=== PATIENT | female | born 1940 | race Caucasian/White ===

== ENCOUNTER → 2017-09-20 14:28 | Outpatient (POV) | payer MEDICARE, OTHER, SELFPAY | PROVIDERS: PCP Family Medicine; Visit Provider Dermatology | DX: Z00.00 Encounter for general adult medical examination without abnormal findings (principal) ==

== ENCOUNTER → 2017-09-25 07:59 | Outpatient (CLI) | payer MEDICARE, OTHER, SELFPAY ==
--- NOTE | 2017-09-25 08:04 | CA_ITS ---
PROCEDURE: 2-D M-mode and color Doppler study INDICATIONS FOR THE TEST: Chest pain COPD+ Heart Murmur Tobacco Smoking Palpitations Fatigue Syncope Edema+ Hypertension+Diabetes Mellitus Rheumatic Fever SOB PINON+Obesity Hyperlipidemia+ Family History HD+ Additional History history of Cardiomyopathy PATIENT INFORMATION HEIGHT: 63 WEIGHT: 152 GENDER: Female B/P: 156/80 2-D/M-MODE INTERPRETATION: 2-D MEASUREMENTS OBSERVED VALUES IN CMS Right Ventricular Dimension (RVDd) 2.3 Interventricular Septum (Thickness)(IVsd) 1.0 Left Ventricular Internal Dimensions(LVIDd) 3.3 Left Ventricular Posterior Wall (Thickness)(LVPWd) 0.8 Aortic Root 2.8 Aortic Cusp Separation 2.1 Left Atrial Dimensions (LAD) 3.4 2D 1. Left atrium is qualitatively mildly enlarged, left ventricle is normal size, there is mild qualitative concentric left ventricular hypertrophy present, septum has sigmoid configuration, visually estimated ejection fraction 55% with no obvious regional wall motion abnormality. 2. The right atrium and right ventricle are normal size and contractility. 3. The aortic valve is minimally thickened and fibrosed. 4. The mitral valve leaflets are minimally thickened, there is mild systolic anterior motion of the mitral valve leaflets seen. 5. The tricuspid valve is grossly normal. 6. The pulmonic valve is poorly visualized. 7. No significant pericardial effusion noted. DOPPLER INTERROGATION: Doppler interrogation of the aortic, mitral and tricuspid valvular presence of mild mitral and tricuspid regurgitation, tricuspid regurgitant jet velocity insufficient for calculation of the right ventricular systolic pressure, grade 1 diastolic dysfunction seen with tissue Doppler evidence of raised left atrial pressure. There is no resting gradient seen in the left ventricular outflow tract. CONCLUSION: 1. Mildly enlarged left atrium, normal left ventricular size, mild concentric left ventricular hypertrophy, visually estimated ejection fraction 55% with no obvious regional wall motion abnormality, diastolic dysfunction seen with tissue Doppler evidence of raised left atrial pressure. 2. Mild systolic anterior motion of the mitral valve leaflets, there is no resting gradient seen in the left ventricular outflow tract, there is mild mitral and tricuspid regurgitation 3. No significant pericardial effusion noted.
== END ==
PROVIDERS: PCP Family Medicine; Visit Provider Internal Medicine
DX: I42.1 Obstructive hypertrophic cardiomyopathy (principal); I51.7 Cardiomegaly; E78.5 Hyperlipidemia, unspecified; D3A.090 Benign carcinoid tumor of the bronchus and lung
CPT/HCPCS: 93306

== ENCOUNTER → 2018-04-23 14:04 | Outpatient (CLI) | payer MEDICARE, OTHER, SELFPAY ==
--- NOTE | 2018-04-23 14:09 | XR_ITS ---
XR chest 2V HISTORY: ITS.REASON: cough ORDERING PHYSICIAN: Alexia Oliva PATIENT AGE: 77 years COMPARISON: 06/16/2016 FINDINGS: The cardiomediastinal silhouette and pulmonary vascularity are within normal limits. There is a lobular noncalcified soft tissue mass in the right perihilar region and 3.5 x 3 cm. This was mentioned on the coronary artery scoring CT of 06/16/2016. Is difficult to determine if there has been any change in size. As mentioned previously CT chest without and with contrast suggested to determine if this is a varix or pulmonary nodule. There are chronic changes in the left lower lobe. Surgical changes in the cervical spine. No acute bony anomalies IMPRESSION: Right perihilar mass. Consider chest CT without and with contrast for further evaluation with CT angiogram protocol on the post enhanced images Chronic changes in the left lower lobe. No acute finding
== END ==
PROVIDERS: PCP Family Medicine; Visit Provider Urology
DX: D3A.090 Benign carcinoid tumor of the bronchus and lung (principal); I11.9 Hypertensive heart disease without heart failure; I42.1 Obstructive hypertrophic cardiomyopathy; I51.7 Cardiomegaly; R05 Cough; R06.00 Dyspnea, unspecified; E78.49 Other hyperlipidemia
CPT/HCPCS: 71046

== ENCOUNTER → 2018-04-26 13:50 | Outpatient (CLI) | payer MEDICARE, OTHER, SELFPAY ==
--- NOTE | 2018-04-26 14:09 | CT_ITS ---
CT chest wo/w con HISTORY: Cough, abnormal chest x-ray showing a right upper lobe mass ITS.REASON: lung mass ORDERING PHYSICIAN: Alexia Oliva PATIENT AGE: 77 years COMPARISON: 04/23/2018, 06/16/2016 Technique: Axial images obtained without and with contrast following the intravenous administration of 75 mL's of Isovue 370 with sagittal and coronal reformats. All CT scans at the facility use one or more dose reduction, viz: automated exposure control, ma/kV adjustment per patient size (including targeted exams where dose is matched to indication, i.e. head), or iterative reconstruction technique. FINDINGS: No mediastinal or hilar mass or adenopathy. Normal heart size. No evidence of pericardial effusion. No aortic aneurysm dissection or central pulmonary embolus. There is a noncalcified lobular soft tissue mass within the superior segment of the right lower lobe measuring 2.7 cm cephalad to caudad, 2 cm transverse, and 2 cm AP. This has a lobular contour with fingerlike extensions peripherally along the superior lateral margin. This does not demonstrate contrast enhancement. A small satellite nodule present along the posterior aspect of this larger nodule which measures 1 cm. There are other noncalcified pulmonary nodules well. There is an 8 mm nodule in the right middle lobe, an 8 mm nodule in the right lower lobe anteriorly, 12 mm nodule in the right lower lobe posteriorly, 4 mm right lower lobe nodule medially, 7 mm nodule left lower lobe, 6 mm nodule left lower lobe anteriorly. No acute bony anomalies are evident. Upper abdominal images show a 6 mm isodensity in the right hepatic lobe posteriorly. 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 There is a 1.7 x 1.3 cm soft tissue density posterior to the body the pancreas and may represent a lymph node. IMPRESSION: 1. Noncalcified lobular right upper lobe mass. This does not demonstrate enhancement patterns typical for a pulmonary varix. A thrombosed varix is a consideration however, there are other noncalcified pulmonary nodules are also present as detailed above. Metastatic disease therefore consideration. Does patient have a known primary carcinoma? Consider PET CT for further evaluation. 2. Left renal angiomyolipoma. 3. Other nonacute findings as described above
[2018-04-26 14:21] LABS: Blood Urea Nitrogen 16 mg/dL (7-18); Creatinine,Serum 1.23 mg/dL (0.55-1.02); Estimated Glomerular Filt Rate 42 ml/min (>60); GFR (African American) 51 ML/MIN (>60)
== END ==
PROVIDERS: Visit Provider Urology
DX: R91.8 Other nonspecific abnormal finding of lung field; D3A.090 Benign carcinoid tumor of the bronchus and lung; E78.5 Hyperlipidemia, unspecified; I11.9 Hypertensive heart disease without heart failure; I42.1 Obstructive hypertrophic cardiomyopathy; R53.83 Other fatigue; R60.9 Edema, unspecified
CPT/HCPCS: 36415; 71270; 82565; 84520; Q9967

== ENCOUNTER 2018-05-08 23:43 | Inpatient (IN) ==
[2018-05-09 07:25] LABS: Basophils % 0.1 % (0.1-2.0); Eosinophils % 0.1 % (0.1-12.0); Hematocrit 37.9 % (37.0-47.0); Hemoglobin 12.5 g/dL (12.2-16.2); Lymphocytes # 1.1 K/mm3 (0.7-4.5); Lymphocytes % 10.4 % (10-50); Mean Corpuscular HGB Conc 32.9 g/dL (31.8-35.4); Mean Corpuscular Hemoglobin 29.8 pg (27.0-31.2); Mean Corpuscular Volume 90.8 fl (81-99); Mean Platelet Volume 7.2 fl (7.4-10.4); Monocytes # 0.2 K/mm3 (0.1-1.0); Monocytes % 1.5 % (1.7-9.3); Neutrophils # 9.4 K/mm3 (1.8-7.8); Neutrophils % 87.9 % (37.0-80.0); Platelet Count 475 K/mm3 (142-424); Red Blood Count 4.18 M/mm3 (4.20-5.40); Red Cell Distribution Width 13.3 % (11.5-17.5); White Blood Count 10.7 K/mm3 (4.8-10.8)
[2018-05-09 07:34] LABS: INR 0.97 (0.9-1.1)
[2018-05-09 07:50] LABS: Anion Gap 17.4 mEq/L (5-15); Calcium 9.5 mg/dL (8.5-10.1); Potassium 4.4 mmoL/L (3.5-5.1)
--- NOTE | 2018-05-09 07:56 | Pharmacy Consult Notes ---
[facility] Pharmacy VTE Monitoring - Patient Demographics Admission date: 05/09/18 Report Date: 05/09/18 Time: 07:56 Allergies/Adverse Reactions: Patient Allergies Sulfa (Sulfonamide Antibiotics) Allergy (Verified 05/01/18 12:18) sulfamethoxazole [From Bactrim] Allergy (Verified 05/01/18 12:18) trimethoprim [From Bactrim] Allergy (Verified 05/01/18 12:18) Height: 1.52 m Weight: 65.771 kg - VTE Risk Labs: VTE Related Lab Results Hgb 12.5 g/dL (12.2-16.2) 05/09/18 05:26 Hct 37.9 % (37.0-47.0) 05/09/18 05:26 Plt Count 475 K/mm3 (142-424) H 05/09/18 05:26 PT 10.0 seconds (9.4-11.8) 05/09/18 05:26 INR 0.97 (0.9-1.1) 05/09/18 05:26 BUN 21 mg/dL (7-18) H 05/09/18 05:26 Creatinine 1.01 mg/dL (0.55-1.02) 05/09/18 05:26 Estimated Creat Clear 48 mL/min (50-200) 05/09/18 05:26 Was VTE Risk Assessment Performed: Yes VTE Score: 4 VTE Risk Level: Low Risk Clinical Trial Participant: No - Prophylaxis VTE Prophylaxis Ordered?: Yes Types of VTE Prophylaxis: TEDS Knee High
--- NOTE | 2018-05-09 08:28 | Consult Report ---
History of Present Illness Consult date: 05/09/18 Requesting physician: Andrew Leo Consult reason: chest pain Chief complaint: Cough, dizziness Additional Medical History:: 1. HOCM 2. Non-cancerous lung tumor, followed by Stephanie Poole at 3. Hypothyroidism 4. HLD History of present illness: 77 yo WF with history of HOCM presented to [facility] ER for evaluation of chest pain. Symptoms of non-productive cough and dizziness for 2 wks. Denies fever, chills, nausea or vomiting. Daily loose stools due to linzess per patient. Elevated troponin noted without EKG changes and pt was transferred here for furt her cardiac treatment. History of low coronary calcium score in 2017 with normal stress test. Denies tobacco use or diabetes. [facility] History Medical History: Reports:: Cardiomyopathy, Gastroesophageal Reflux Disease(GERD), Hyperlipidemia, Hypertension Denies:: Cancer, Diabetes Mellitus Type 1, Diabetes Mellitus Type 2, MRSA Have you ever received a pneumonia vaccine?: Yes Have you received a flu vaccine this season?: Yes Other Medical History: Reports: Arthritis, Hypothyroidism Other Surgeries: Yes: Hysterectomy-Total, Tubal Ligation, Other Amputation: No - *Social History Educational Level: Completed College Smoking Status: Never smoker Alcohol Intake: never Alcohol Intake Frequency:: other Substance Use Type: denies use Occupational Status: retired Housing: house Travel in the last 8 weeks: None - Psychiatric History Expresses thoughts of harming self/others: None Suicide Plan Description: No Plan *Family Hx:: Coronary Artery Disease, Heart Attack Meds Home Medications Medication Instructions Recorded Confirmed Type docusate sodium 100 mg capsule 100 mg PO HS 04/30/17 05/15/18 History pravastatin 40 mg tablet 40 mg PO HS 04/30/17 05/15/18 History buspirone 10 mg tablet 10 mg PO DAILY 06/19/17 05/15/18 History fluticasone 100 mcg-umeclid 62.5 1 inh INHALATION NEEDED PRN 06/19/17 05/15/18 History mcg-vilant 25 mcg powd for inhalation levothyroxine 88 mcg capsule 88 mcg PO DAILY cap 06/19/17 05/15/18 History pantoprazole 40 mg tablet,delayed 40 mg PO DAILY 06/19/17 05/15/18 History release conjugated estrogens 0.625 mg 0.625 mg PO DAILY tab 07/17/17 05/15/18 History tablet linaclotide 290 mcg capsule 290 mcg PO DAILY cap 07/17/17 05/15/18 History venlafaxine ER 225 mg 225 mg PO DAILY tab 07/17/17 05/15/18 History tablet,extended release 24 hr Loratadine [Allergy Relief] 10 mg PO NEEDED PRN 12/20/17 05/15/18 History aspirin 81 mg tablet,delayed 81 mg PO DAILY 01/22/18 05/15/18 History release cyanocobalamin (vitamin B-12) 1,000 mcg PO DAILY 01/22/18 05/15/18 History 1,000 mcg capsule meclizine 12.5 mg tablet 12.5 mg PO NEEDED PRN 01/22/18 05/15/18 History triamcinolone acetonide 0.1 % 1 applic TOPICAL NEEDED PRN 01/22/18 05/15/18 History topical cream trospium 20 mg tablet 20 mg PO DAILY tab 01/22/18 05/15/18 History diltiazem CD 360 mg 360 mg PO DAILY #90 cap 03/05/18 05/15/18 Rx capsule,extended release 24 hr metoprolol succinate ER 100 mg 100 mg PO BID tab 04/23/18 05/15/18 History tablet,extended release 24 hr Furosemide [Furosemide 20mg Tab] 20 mg PO DAILY 05/09/18 05/15/18 History Spironolactone [Aldactone 25mg 25 mg PO DAILY #30 tab 05/10/18 05/15/18 Rx Tab] clopidogrel 75 mg tablet 75 mg PO DAILY #30 tab 05/10/18 05/15/18 Rx Allergies Allergy/AdvReac Type Severity Reaction Status Date / Time Sulfa (Sulfonamide Allergy Verified 05/15/18 09:15 Antibiotics) sulfamethoxazole Allergy Verified 05/15/18 09:15 [From Bactrim] trimethoprim [From Bactrim] Allergy Verified 05/15/18 09:15 Review of Systems - *Cardiovascular Reports chest pain, Reports shortness of breath - *Respiratory Reports cough, Reports shortness of breath - *Gastrointestinal Denies abdominal pain - *Genitourinary Denies blood in urine - *Musculoskeletal Denies joint pain Exam Vital signs and Labs for Last 24 Hours: Temp Pulse Resp BP Pulse Ox 98.0 F 91 H 18 121/83 96 05/09/18 04:00 05/09/18 06:00 05/09/18 04:00 05/09/18 06:00 05/09/18 06:00 Laboratory Results - last 24 hr 05/09/18 05:26: WBC 10.7, RBC 4.18 L, Hgb 12.5, Hct 37.9, MCV 90.8, MCH 29.8, MCHC 32.9, RDW 13.3, Plt Count 475 H, MPV 7.2 L, Neut % (Auto) 87.9 H, Lymph % (Auto) 10.4, [place] % (Auto) 1.5 L, Eos % (Auto) 0.1, Baso % (Auto) 0.1, Neut # (Auto) 9.4 H, Lymph # (Auto) 1.1, [place] # (Auto) 0.2, Eos # (Auto) 0.0, Baso # (Auto) 0.0 05/09/18 05:26: PT 10.0, INR 0.97 05/09/18 05:26: Sodium 128 L, Potassium 4.4, Chloride 92 L, Carbon Dioxide 23, Anion Gap 17.4 H, BUN 21 H, Creatinine 1.01, Estimated Creat Clear 48, Estimated GFR 53 L, Est GFR ( Amer) 64, Glucose 145 H, Calcium 9.5, Magnesium 1.6, Triglycerides 201 H, Cholesterol 221 H, LDL Cholesterol 126, VLDL Cholesterol 40, HDL Cholesterol 55, Cholesterol/HDL Ratio 4.0 H I & O for Last 24 hours: Intake & Output 05/06/18 05/07/18 05/08/18 05/09/18 11:59 11:59 11:59 11:59 Intake Total Balance Weight 145 lb - *Routine Neck Exam Present: supple. Absent: JVD, carotid bruit - *Routine Respiratory Exam Present: crackles. Absent: accessory muscle use, rales, rhonchi, wheezes - *Routine Cardiovascular Exam Present: RRR. Absent: murmur, gallop, rubs - *Routine Extremities Exam Absent: edema, calf tenderness - *Routine Neurological Exam Present: alert, oriented X3, moving all extremities Assessment and Plan (1) Elevated troponin Status: Acute Category: Medical Code(s): R74.8 - Abnormal levels of other serum enzymes (2) Hyperlipidemia Status: Chronic Qualifiers: Hyperlipidemia type: other hyperlipidemia Qualified Code(s): E78.49 - Other hyperlipidemia; E78.4 - Other hyperlipidemia Category: Medical Code(s): E78.5 - Hyperlipidemia, unspecified (3) Hypertensive heart disease Status: Chronic Qualifiers: Heart failure presence: without heart failure Qualified Code(s): I11.9 - Hypertensive heart disease without heart failure Category: Medical Code(s): I11.9 - Hypertensive heart disease without heart failure (4) Hypertrophic obstructive cardiomyopathy Status: Chronic Category: Medical Code(s): I42.1 - Obstructive hypertrophic cardiomyopathy - Assessment and plan all Dx Assessment and Plan for all problems:: 1. LHC today to evaluate elevated troponin 2. Pneumonia on CXR, per Dr. Leo 3. Continue combo of beta margaret and CCB 4. Further recommendations to follow
[2018-05-09 09:12] LABS: Lymphocytes % 7 % (10-50); Monocytes % 2 % (2-9); Neutrophils % 89 % (42-76); Total Cells Counted 100
--- NOTE | 2018-05-09 10:02 | History & Physical Report ---
*Admission Date: 05/09/18 *Chief complaint: sob *History of present illness: this wf presented to [facility] with sob and was found to have nstemi- [facility] 2. Non-cancerous lung tumor, followed by Stephanie Poole at 3. Hypothyroidism 4. HLD History of present illness: 77 yo WF with history of HOCM presented to [facility] ER for evaluation of chest pain. Symptoms of non-productive cough and dizziness for 2 wks. Denies fever, chills, nausea or vomiting. Daily loose stools due to linzess per patient. Elevated troponin noted without EKG changes and pt was transferred here for further cardiac treatment. History of low coronary calcium score in 2017 with normal stress test. Denies tobacco use or diabetes. [facility] History I have reviewed the patient's past medical history: Yes Medical History: Reports:: Cardiomyopathy, Gastroesophageal Reflux Disease(GERD), Hyperlipidemia, Hypertension Denies:: Cancer, Diabetes Mellitus Type 1, Diabetes Mellitus Type 2, MRSA Have you ever received a pneumonia vaccine?: Yes Have you received a flu vaccine this season?: Yes Other Medical History: Reports: Arthritis, Hypothyroidism Other Surgeries: Yes: Hysterectomy-Total, Tubal Ligation, Other Amputation: No - *Social History Educational Level: Completed College Smoking Status: Never smoker Alcohol Intake: never Alcohol Intake Frequency:: other Substance Use Type: denies use Occupational Status: retired Housing: house Travel in the last 8 weeks: None - Psychiatric History Expresses thoughts of harming self/others: None Suicide Plan Description: No Plan *Family Hx:: Coronary Artery Disease, Heart Attack Review of Systems - Review of Systems Review of systems:: pertinent systems reviewed and negative unless documented below - Constitutional Denies fever(s) - Eyes Denies change in vision - ENT Denies change in voice - *Cardiovascular Reports chest pain with activity, Reports shortness of breath - *Respiratory Reports cough, Reports shortness of breath, Denies coughing up blood - *Gastrointestinal Denies abdominal pain - *Genitourinary Denies blood in urine - *Musculoskeletal Denies joint pain - Integumentary/Breasts Denies rash - *Neurologic Denies seizure-like activity Meds Home Medications Medication Instructions Recorded Confirmed Type docusate sodium 100 mg capsule 100 mg PO HS 04/30/17 05/09/18 History pravastatin 40 mg tablet 40 mg PO HS 04/30/17 05/09/18 History buspirone 10 mg tablet 10 mg PO DAILY 06/19/17 05/09/18 History fluticasone 100 mcg-umeclid 62.5 1 inh INHALATION NEEDED PRN 06/19/17 05/09/18 History mcg-vilant 25 mcg powd for inhalation levothyroxine 88 mcg capsule 88 mcg PO DAILY cap 06/19/17 05/09/18 History pantoprazole 40 mg tablet,delayed 40 mg PO DAILY 06/19/17 05/09/18 History release conjugated estrogens 0.625 mg 0.625 mg PO DAILY tab 07/17/17 05/09/18 History tablet linaclotide 290 mcg capsule 290 mcg PO DAILY cap 07/17/17 05/09/18 History venlafaxine ER 225 mg 225 mg PO DAILY tab 07/17/17 05/09/18 History tablet,extended release 24 hr Loratadine [Allergy Relief] 10 mg PO NEEDED PRN 12/20/17 05/09/18 History aspirin 81 mg tablet,delayed 81 mg PO DAILY 01/22/18 05/09/18 History release cyanocobalamin (vitamin B-12) 1,000 mcg PO DAILY 01/22/18 05/09/18 History 1,000 mcg capsule meclizine 12.5 mg tablet 12.5 mg PO NEEDED PRN 01/22/18 05/09/18 History triamcinolone acetonide 0.1 % 1 applic TOPICAL NEEDED PRN 01/22/18 05/09/18 History topical cream trospium 20 mg tablet 20 mg PO DAILY tab 01/22/18 05/09/18 History diltiazem CD 360 mg 360 mg PO DAILY #90 cap 03/05/18 05/09/18 Rx capsule,extended release 24 hr metoprolol succinate ER 100 mg 100 mg PO BID tab 04/23/18 05/09/18 History tablet,extended release 24 hr Furosemide [Furosemide 20mg Tab] 20 mg PO NEEDED PRN 05/09/18 05/09/18 History Losartan Potassium 50 mg PO DAILY 05/09/18 05/09/18 History Allergies Allergy/AdvReac Type Severity Reaction Status Date / Time Sulfa (Sulfonamide Allergy Verified 05/01/18 12:18 Antibiotics) sulfamethoxazole Allergy Verified 05/01/18 12:18 [From Bactrim] trimethoprim [From Bactrim] Allergy Verified 05/01/18 12:18 Exam Vital signs and Labs for Last 24 Hours: Temp Pulse Resp BP Pulse Ox 98.0 F 91 H 18 121/83 96 05/09/18 04:00 05/09/18 06:00 05/09/18 04:00 05/09/18 06:00 05/09/18 06:00 Laboratory Results - last 24 hr 05/09/18 05:26: WBC 10.7, RBC 4.18 L, Hgb 12.5, Hct 37.9, MCV 90.8, MCH 29.8, MCHC 32.9, RDW 13.3, Plt Count 475 H, MPV 7.2 L, Neut % (Auto) 87.9 H, Lymph % (Auto) 10.4, [place] % (Auto) 1.5 L, Eos % (Auto) 0.1, Baso % (Auto) 0.1, Neut # (Auto) 9.4 H, Lymph # (Auto) 1.1, [place] # (Auto) 0.2, Eos # (Auto) 0.0, Baso # (Auto) 0.0, Total Counted 100, Neutrophils % (Manual) 89 H, Lymphocytes % (Manual) 7 L, Atypical Lymphs % 2.0, Monocytes % (Manual) 2, Platelet Estimate Slight increase 05/09/18 05:26: PT 10.0, INR 0.97 05/09/18 05:26: Sodium 128 L, Potassium 4.4, Chloride 92 L, Carbon Dioxide 23, Anion Gap 17.4 H, BUN 21 H, Creatinine 1.01, Estimated Creat Clear 48, Estimated GFR 53 L, Est GFR ( Amer) 64, Glucose 145 H, Calcium 9.5, Magnesium 1.6, Triglycerides 201 H, Cholesterol 221 H, LDL Cholesterol 126, VLDL Cholesterol 40, HDL Cholesterol 55, Cholesterol/HDL Ratio 4.0 H I & O for Last 24 hours: Intake & Output 05/06/18 05/07/18 05/08/18 05/09/18 11:59 11:59 11:59 11:59 Intake Total Balance Weight 145 lb - Constitutional no acute distress, average body habitus - *Routine HEENT Exam Head: Present: normocephalic Eye: Present: EOMI, PERRL ENT: Present: mucous membranes dry - *Routine Neck Exam Present: supple. Absent: JVD - *Routine Respiratory Exam Present: decreased breath sounds - *Routine Cardiovascular Exam Present: RRR, murmur - *Routine Abdominal Exam Present: soft. Absent: tenderness - *Routine Extremities Exam Absent: calf tenderness - *Routine Skin Exam Present: intact - *Routine Neurological Exam Present: alert, oriented X3, CN II-XII intact - Routine Psychiatric Exam Present: normal affect Assessment and Plan (1) Elevated troponin Current visit: Yes Status: Acute Category: Medical Code(s): R74.8 - Abnormal levels of other serum enzymes (2) Hyperlipidemia Current visit: No Status: Chronic Qualifiers: Hyperlipidemia type: other hyperlipidemia Qualified Code(s): E78.49 - Other hyperlipidemia; E78.4 - Other hyperlipidemia Category: Medical Code(s): E78.5 - Hyperlipidemia, unspecified (3) Hypertensive heart disease Current visit: No Status: Chronic Qualifiers: Heart failure presence: without heart failure Qualified Code(s): I11.9 - Hypertensive heart disease without heart failure Category: Medical Code(s): I11.9 - Hypertensive heart disease without heart failure (4) Hypertrophic obstructive cardiomyopathy Current visit: No Status: Chronic Category: Medical Code(s): I42.1 - Obstructive hypertrophic cardiomyopathy
--- NOTE | 2018-05-09 16:38 | Cardiology Report ---
PROCEDURE: 2-D M-mode and color Doppler study INDICATIONS FOR THE TEST: Chest pain COPD Heart Murmur Tobacco Smoking Palpitations Fatigue Syncope Edema HypertensionXDiabetes Mellitus Rheumatic Fever SOB PINON Obesity HyperlipidemiaX Family History HD Additional History NSTEMI,CM PATIENT INFORMATION HEIGHT: 60 WEIGHT:145 GENDER: Female B/P:141/73 2-D/M-MODE INTERPRETATION: 2-D MEASUREMENTS OBSERVED VALUES IN CMS Right Ventricular Dimension (RVDd) 1.9 Interventricular Septum (Thickness)(IVsd) 1.0 Left Ventricular Internal Dimensions(LVIDd) 3.5 Left Ventricular Posterior Wall (Thickness)(LVPWd) .8 Aortic Root 2.7 Aortic Cusp Separation 1.8 Left Atrial Dimensions (LAD) 3.2 2D 1. Left atrium is moderately enlarged, left ventricle is normal size, there is asymmetrical septal hypertrophy of the basal septum seen, visually estimated ejection fraction of 55-60% with no regional wall motion abnormality. 2. The right atrium and right ventricle are normal size and contractility. 3. The aortic valve is thickened and VERY difficult to display mobility, there is no aortic stenosis. 4. The mitral valve has mitral calcification, there is mild systolic anterior motion of the mitral valve leaflets seen towards left ventricular outflow tract. 5. The tricuspid valve is grossly normal. 6. The pulmonic valve is poorly visualized. 7. No significant pericardial effusion noted. DOPPLER INTERROGATION: 1. There is increased velocity seen in the left ventricle outflow tract, this is likely secondary to dynamic obstruction, which is not well recorded in this study, degree of obstruction and gradient cannot be determined with this study. A repeat study with better Doppler technique is recommended for further evaluation of resting gradient as well as provocable gradient in the left ventricular outflow tract. There is mild aortic insufficiency present. 2. Mitral inflow velocity within normal range, there is no mitral stenosis, there is moderate to severe mitral regurgitation. Grade 1 diastolic dysfunction seen with tissue Doppler evidence of raised left atrial pressure. 3. There is moderate tricuspid regurgitation noted, calculated right ventricular systolic pressure is 54 mmHg consistent with moderate pulmonary hypertension. CONCLUSION: 1. Moderately enlarged left atrium, normal left ventricular size, asymmetrical septal hypertrophy likely hypertrophy cardiomyopathy, visually estimated ejection fraction 55-60% with no regional wall motion abnormality, there is likely dynamic left ventricular outflow track obstruction present, repeat study with better Doppler technique is recommended for further evaluation of the resting as well as provocable gradient in the left ventricular outflow tract. 2. Morphologically there is no aortic stenosis, there is mild aortic insufficiency. 3. Mild systolic anterior motion of the mitral valve leaflets towards the left ventricle outflow tract, agitated with the moderate to severe mitral regurgitation 4. Moderate tricuspid regurgitation, calculated right ventricular systolic pressure is 54 mmHg consistent with moderate pulmonary hypertension. 5. No significant pericardial effusion noted.
[2018-05-10 07:35] LABS: Hemoglobin 10.1 g/dL (12.2-16.2)
--- NOTE | 2018-05-10 08:31 | Progress Note ---
Subjective Date: 05/10/18 Time: 08:25 Principal diagnosis: NSTEMI Interval history: 77 yo WF in bed in [facility]. Telemetry shows sinus rhythm at 100 bpm. No chest pain or SOA. Exam Vital signs and Labs for Last 24 Hours: Temp Pulse Resp BP Pulse Ox 98.1 F 86 16 141/82 H 92 L 05/10/18 06:00 05/10/18 06:00 05/10/18 06:00 05/10/18 06:00 05/10/18 06:00 Laboratory Results - last 24 hr 05/09/18 05:26: Total Counted 100, Neutrophils % (Manual) 89 H, Lymphocytes % (Manual) 7 L, Atypical Lymphs % 2.0, Monocytes % (Manual) 2, Platelet Estimate Slight increase 05/09/18 12:30: Activated Clotting Time 250 H* 05/10/18 06:50: Hgb 10.1 L, Hct 31.0 L 05/10/18 06:50: Creatinine 0.88, Estimated Creat Clear 47, Estimated GFR 62, Est GFR ( Amer) 75 I & O for Last 24 hours: Intake & Output 05/07/18 05/08/18 05/09/18 05/10/18 11:59 11:59 11:59 11:59 Intake Total 960 / 960 Output Total 3450 / 3450 Balance -2490 / -2490 Weight 145 lb 140 lb - *Routine HEENT Exam Head: Present: normocephalic Eye: Present: EOMI, PERRL ENT: Present: mucous membranes moist - *Routine Respiratory Exam Present: CTA bilaterally. Absent: accessory muscle use, rales, rhonchi, wheezes - *Routine Cardiovascular Exam Present: RRR, tachycardia. Absent: murmur, gallop, rubs - *Routine Abdominal Exam Present: soft. Absent: tenderness, distended, guarding - *Routine Extremities Exam Absent: edema, calf tenderness - *Routine Neurological Exam Present: alert, oriented X3, moving all extremities Progress Note: A&P (1) NSTEMI (non-ST elevated myocardial infarction) Status: Acute (2) Hyperlipidemia Status: Chronic (3) Hypertensive heart disease Status: Chronic (4) Hypertrophic obstructive cardiomyopathy Status: Chronic Assessment and Plan for All Diagnoses:: 1. Continue ASA and plavix (started at [facility]) along with restarting Cardizem, metoprolol at home doses. Will add ARB for wall motion abnormality noted on echo and cardiac cath. Add low dose lasix and aldactone. 2. Re-evaluate later today for possible discharge home
--- NOTE | 2018-05-10 14:00 | Discharge Summary ---
General - General Admission date:: 05/08/18 Discharge date: 05/10/18 HPI HPI: this wf presented to [facility] with sob and was found to have nstemi- she [facility] 2. Non-cancerous lung tumor, followed by Stephanie Poole at 3. Hypothyroidism 4. HLD History of present illness: 77 yo WF with history of HOCM presented to [facility] ER for evaluation of chest pain. Symptoms of non-productive cough and dizziness for 2 wks. Denies fever, chills, nausea or vomiting. Daily loose stools due to linzess per patient. Elevated troponin noted without EKG changes and pt was transferred here for further cardiac treatment. History of low coronary calcium score in 2017 with normal stress test. Denies tobacco use or diabetes. Hospital Course Hospital Course: pt was monitored in hospital and was seen by card-HC today to evaluate elevated troponin 2. Pneumonia on CXR, per Dr. Leo 3. Continue combo of beta margaret and CCB 4. Further recommendations to follow pt was on abx for abn cxr and did well and had card cath and echo -OPPLER INTERROGATION: 1. There is increased velocity seen in the left ventricle outflow tract, this is likely secondary to dynamic obstruction, which is not well recorded in this study, degree of obstruction and gradient cannot be determined with this study. A repeat study with better Doppler technique is recommended for further evaluation of resting gradient as well as provocable gradient in the left ventricular outflow tract. There is mild aortic insufficiency present. 2. Mitral inflow velocity within normal range, there is no mitral stenosis, there is moderate to severe mitral regurgitation. Grade 1 diastolic dysfunction seen with tissue Doppler evidence of raised left atrial pressure. 3. There is moderate tricuspid regurgitation noted, calculated right ventricular systolic pressure is 54 mmHg consistent with moderate pulmonary hypertension. CONCLUSION: 1. Moderately enlarged left atrium, normal left ventricular size, asymmetrical septal hypertrophy likely hypertrophy cardiomyopathy, visually estimated ejection fraction 55-60% with no regional wall motion abnormality, there is likely dynamic left ventricular outflow track obstruction present, repeat study with better Doppler technique is recommended for further evaluation of the resting as well as provocable gradient in the left ventricular outflow tract. 2. Morphologically there is no aortic stenosis, there is mild aortic insufficiency. 3. Mild systolic anterior motion of the mitral valve leaflets towards the left ventricle outflow tract, agitated with the moderate to severe mitral regurgitation 4. Moderate tricuspid regurgitation, calculated right ventricular systolic pressure is 54 mmHg consistent with moderate pulmonary hypertension. 5. No significant pericardial effusion noted. NGIOGRAPHIC RESULTS: 1. The left main artery normal 2. The left anterior descending artery has proximal and mid vessel 10-20% stenoses. There is a large first diagonal artery which has an ostial 90% stenosis. 3. The circumflex artery is a nondominant vessel with mild 10% luminal irregularities 4. The right coronary artery is a large dominant vessel and has proximal to mid vessel 10-20% stenoses 5. The [place] ventriculogram reveals normal left ventricular size with moderately hypokinetic anterior apical wall with an estimated ejection fraction of 45% 6. The left ventricular end-diastolic pressure severely elevated at 40 mmHg IMPRESSION: 1. Large regional wall motion abnormality with reduced ejection fraction involving the anterior apical wall. 2. Severely elevated LVEDP with ejection fraction of 45% 3. Severe disease in a large first diagonal artery which likely accounts for the regional wall motion abnormality and the acute non-ST elevation myocardial infarction 4. Successful stenting of the proximal LAD with stenting into the first diagonal artery and a bifurcating manner reducing the culprit vessel stenosis to 0% PLAN: 1. Brilinta and aspirin 2. Patient needs significant diuresis with Loop diuretics and Aldactone to be given in the hospital and upon discharge 3. Carvedilol combined with pilar inhibitors 4. Avoidance of tobacco products 5. Cardiac rehabilitation pt did well and was stable and will be d/c to see her pcp and also dr lawson Objective Vital signs: Temp Pulse Resp BP Pulse Ox 98.0 F 95 H 16 155/93 H 97 05/10/18 12:00 05/10/18 12:00 05/10/18 12:00 05/10/18 12:00 05/10/18 12:00 no acute distress - *Routine HEENT Exam Head: Present: normocephalic Eye: Present: EOMI, PERRL ENT: Present: mucous membranes dry - *Routine Neck Exam Present: supple - *Routine Respiratory Exam Present: CTA bilaterally - *Routine Cardiovascular Exam Present: RRR, murmur - *Routine Abdominal Exam Present: soft - *Routine Extremities Exam Absent: edema - *Routine Skin Exam Present: intact - *Routine Neurological Exam Present: alert, oriented X3, CN II-XII intact - Routine Psychiatric Exam Present: normal affect Results Labs on day of discharge: Labs from last 24 hours 05/10/18 05/10/18 06:50 06:50 Hgb 10.1 L Hct 31.0 L Creatinine 0.88 Estimated Creat Clear 47 Estimated GFR 62 Est GFR ( Amer) 75 DS: Diagnosis - Discharge Diagnosis (1) NSTEMI (non-ST elevated myocardial infarction) Status: Acute (2) Hyperlipidemia Status: Chronic (3) Hypertensive heart disease Status: Chronic (4) Hypertrophic obstructive cardiomyopathy Status: Chronic (5) Mitral regurgitation Status: Acute (6) Tricuspid regurgitation Status: Acute (7) Pulmonary hypertension Status: Acute Discharge Plan - Patient Discharge Instructions ACTIVITY: Continue current activity DIET: continue same diet Patient Instructions: DI for Heart Attack, DI for Angina, DI for Cardiac Catheterization, DI for Surgical Site Infection - Follow up Plan Disposition: Home, Self-Detention Medications: Home Medications Medication Instructions Recorded Confirmed Type docusate sodium 100 mg capsule 100 mg PO HS 04/30/17 05/09/18 History pravastatin 40 mg tablet 40 mg PO HS 04/30/17 05/09/18 History buspirone 10 mg tablet 10 mg PO DAILY 06/19/17 05/09/18 History fluticasone 100 mcg-umeclid 62.5 1 inh INHALATION NEEDED PRN 06/19/17 05/09/18 History mcg-vilant 25 mcg powd for inhalation levothyroxine 88 mcg capsule 88 mcg PO DAILY cap 06/19/17 05/09/18 History pantoprazole 40 mg tablet,delayed 40 mg PO DAILY 06/19/17 05/09/18 History release conjugated estrogens 0.625 mg 0.625 mg PO DAILY tab 07/17/17 05/09/18 History tablet linaclotide 290 mcg capsule 290 mcg PO DAILY cap 07/17/17 05/09/18 History venlafaxine ER 225 mg 225 mg PO DAILY tab 07/17/17 05/09/18 History tablet,extended release 24 hr Loratadine [Allergy Relief] 10 mg PO NEEDED PRN 12/20/17 05/09/18 History aspirin 81 mg tablet,delayed 81 mg PO DAILY 01/22/18 05/09/18 History release cyanocobalamin (vitamin B-12) 1,000 mcg PO DAILY 01/22/18 05/09/18 History 1,000 mcg capsule meclizine 12.5 mg tablet 12.5 mg PO NEEDED PRN 01/22/18 05/09/18 History triamcinolone acetonide 0.1 % 1 applic TOPICAL NEEDED PRN 01/22/18 05/09/18 History topical cream trospium 20 mg tablet 20 mg PO DAILY tab 01/22/18 05/09/18 History diltiazem CD 360 mg 360 mg PO DAILY #90 cap 03/05/18 05/09/18 Rx capsule,extended release 24 hr metoprolol succinate ER 100 mg 100 mg PO BID tab 04/23/18 05/09/18 History tablet,extended release 24 hr Furosemide [Furosemide 20mg Tab] 20 mg PO DAILY 05/09/18 05/10/18 History Losartan Potassium 50 mg PO DAILY 05/09/18 05/09/18 History Aspirin [Aspirin 81mg EC Tab] 81 mg PO DAILY #30 tablet. 05/10/18 Rx Clopidogrel Bisulfate [Plavix 75mg 75 mg PO DAILY #30 tablet 05/10/18 Rx Tab] Furosemide [Lasix 20mg tablet] 20 mg PO DAILY #30 tablet 05/10/18 Rx Irbesartan [Avapro 75mg 75 mg PO DAILY #30 tablet 05/10/18 Rx tablet] Metoprolol Succinate [Toprol XL 100 mg PO DAILY #30 tab.er.24h 05/10/18 Rx 100mg tablet] Spironolactone [Aldactone 25mg 25 mg PO DAILY #30 tablet 05/10/18 Rx Tab] dilTIAZem HCl [Cardizem 180mg ER 360 mg PO DAILY #30 cap.er.24h 05/10/18 Rx capsule] Prescriptions/Medication Reconciliation: New Clopidogrel Bisulfate [Plavix 75mg Tab] 75 mg PO DAILY #30 tablet dilTIAZem HCl [Cardizem 180mg ER capsule] 360 mg PO DAILY #30 cap.er.24h Irbesartan [Avapro 75mg tablet] 75 mg PO DAILY #30 tablet Metoprolol Succinate [Toprol XL 100mg tablet] 100 mg PO DAILY #30 tab.er.24h Spironolactone [Aldactone 25mg Tab] 25 mg PO DAILY #30 tablet Aspirin [Aspirin 81mg EC Tab] 81 mg PO DAILY #30 tablet. Furosemide [Lasix 20mg tablet] 20 mg PO DAILY #30 tablet Continue pravastatin 40 mg tablet 40 mg PO HS docusate sodium 100 mg capsule 100 mg PO HS fluticasone 100 mcg-umeclid 62.5 mcg-vilant 25 mcg powd for inhalation 1 inh INHALATION NEEDED PRN PRN Reason: allergies levothyroxine 88 mcg capsule 88 mcg PO DAILY cap buspirone 10 mg tablet 10 mg PO DAILY pantoprazole 40 mg tablet,delayed release 40 mg PO DAILY venlafaxine ER 225 mg tablet,extended release 24 hr 225 mg PO DAILY tab meclizine 12.5 mg tablet 12.5 mg PO NEEDED PRN PRN Reason: Dizziness triamcinolone acetonide 0.1 % topical cream 1 applic TOPICAL NEEDED PRN PRN Reason: itching cyanocobalamin (vitamin B-12) 1,000 mcg capsule 1,000 mcg PO DAILY aspirin 81 mg tablet,delayed release 81 mg PO DAILY diltiazem CD 360 mg capsule,extended release 24 hr 360 mg PO DAILY #90 cap metoprolol succinate ER 100 mg tablet,extended release 24 hr 100 mg PO BID tab conjugated estrogens 0.625 mg tablet 0.625 mg PO DAILY tab linaclotide 290 mcg capsule 290 mcg PO DAILY cap trospium 20 mg tablet 20 mg PO DAILY tab Loratadine [Allergy Relief] 10 mg PO NEEDED PRN PRN Reason: allergy season only Losartan Potassium 50 mg PO DAILY Furosemide [Furosemide 20mg Tab] 20 mg PO DAILY
== END 2018-05-10 15:43 | disposition home or self-care (01) | DRG 247 ==
LOC: ICU 23:43
PROVIDERS: ADMIT Emergency Medicine; ATTEND Emergency Medicine
CPT/HCPCS: 36415; 71010; 71045; 80048; 80061; 82565; 83735; 85007; 85014; 85018; 85025; 85347; 85610; 92928; 92929; 93306; 93458; 94760; 94761; C9600; C9601; J1644; J1956; Q9967

== ENCOUNTER → 2018-05-21 09:38 | Outpatient (CLI) | payer MEDICARE, OTHER, SELFPAY ==
[2018-05-21 11:18] LABS: Hematocrit 33.1 % (37.0-47.0); Hemoglobin 10.9 g/dL (12.2-16.2)
[2018-05-21 12:19] LABS: Blood Urea Nitrogen 19 mg/dL (7-18); Creatinine,Serum 1.18 mg/dL (0.55-1.02); Estimated Glomerular Filt Rate 44 ml/min (>60); GFR (African American) 54 ML/MIN (>60)
== END ==
PROVIDERS: Visit Provider Emergency Medicine
DX: D64.9 Anemia, unspecified (principal)
CPT/HCPCS: 36415; 82565; 84520; 85014; 85018

== ENCOUNTER 2018-05-22 13:33 | Outpatient (RCR) | payer MEDICARE, OTHER, SELFPAY | END 2018-07-18 13:23 | disposition home or self-care (01) | LOC: PT 13:33 | PROVIDERS: Visit Provider Internal Medicine | DX: Z95.5 Presence of coronary angioplasty implant and graft (principal) | CPT/HCPCS: 93798 ==

== ENCOUNTER → 2018-09-24 08:53 | Outpatient (POV) | payer MEDICARE, OTHER, SELFPAY | PROVIDERS: Visit Provider Dermatology | DX: Z00.00 Encounter for general adult medical examination without abnormal findings (principal) ==

== ENCOUNTER → 2018-10-28 09:14 | Outpatient (CLI) | payer MEDICARE, OTHER, SELFPAY ==
--- NOTE | 2018-10-28 09:16 | CA_ITS ---
PROCEDURE: 2-D M-mode and color Doppler study INDICATIONS FOR THE TEST: Chest pain COPD Heart Murmur Tobacco SmokingEX Palpitations Fatigue Syncope Edema HypertensionXDiabetes Mellitus Rheumatic Fever SOBXDOEXObesityXHyperlipidemia Family History HD Additional History CAD PATIENT INFORMATION HEIGHT:64 WEIGHT:162 GENDER: Female B/P:119/75 2-D/M-MODE INTERPRETATION: 2-D MEASUREMENTS OBSERVED VALUES IN CMS Right Ventricular Dimension (RVDd) 1.4 Interventricular Septum (Thickness)(IVsd) 1.2 Left Ventricular Internal Dimensions(LVIDd) 2.5 Left Ventricular Posterior Wall (Thickness)(LVPWd) .9 Aortic Root 2.6 Aortic Cusp Separation 1.6 Left Atrial Dimensions (LAD) 2.6 2D 1. Left atrium is mildly enlarged, left ventricle is normal size, mild concentric left ventricular hypertrophy, visually estimated ejection fraction 55% with no regional wall motion abnormality. Septum has sigmoid configuration. 2. The right atrium and right ventricle are normal size and contractility. 3. The aortic valve is thickened and calcified leaflet continue to display mobility. 4. The mitral valve has mild systolic anterior motion, mitral valve leaflets are minimally thickened. 5. The tricuspid valve is grossly normal. 6. The pulmonic valve is poorly visualized. 7. No significant pericardial effusion noted. DOPPLER INTERROGATION: Doppler interrogation of the aortic, mitral and tricuspid valvular presence of mild aortic, mild mitral and tricuspid regurgitation, tricuspid regurgitation jet velocity is inadequate for calculation of the right ventricular systolic pressure, grade 1 diastolic dysfunction seen without tissue Doppler evidence of raised left atrial pressure. There is no resting gradient seen in the left ventricle outflow tract. CONCLUSION: 1. Mildly enlarged left atrium, normal left ventricular size, mild concentric left ventricular hypertrophy, visually estimated ejection fraction 55% with no regional wall motion abnormality, septum has sigmoid configuration, grade 1 diastolic dysfunction seen without tissue Doppler evidence of raised left atrial pressure. Systolic anterior motion of the mitral valve leaflets seen, there is no resting gradient seen in the left ventricular outflow tract. 2. Mild aortic, mitral and tricuspid regurgitation 3. No significant pericardial effusion noted.
== END ==
PROVIDERS: PCP Family Medicine; Visit Provider Physician Assistant
DX: I34.0 Nonrheumatic mitral (valve) insufficiency (principal)
CPT/HCPCS: 93306

== ENCOUNTER → 2019-05-28 12:02 | Outpatient (CLI) | payer MEDICARE, OTHER, SELFPAY ==
[2019-05-28 13:48] LABS: Anion Gap 11.1 mEq/L (5-15); Blood Urea Nitrogen 19 mg/dL (7-18); Calcium 9.5 mg/dL (8.5-10.1); Carbon Dioxide 32 mmol/L (21.0-32.0); Chloride 98 mmol/L (98-107); Creatinine,Serum 0.97 mg/dL (0.55-1.02); Estimated Glomerular Filt Rate 56 ml/min (>60); GFR (African American) 67 ML/MIN (>60); Glucose 83 mg/dL (74-106); Potassium 4.1 mmoL/L (3.5-5.1); Sodium 137 mmol/L (137-145)
== END ==
PROVIDERS: Urology; Visit Provider Internal Medicine Medical Oncology
DX: R06.02 Shortness of breath (principal); I25.10 Atherosclerotic heart disease of native coronary artery without angina pectoris; R60.9 Edema, unspecified
CPT/HCPCS: 36415; 80048; 83880

== ENCOUNTER → 2019-09-12 10:14 | Outpatient (CLI) | payer MEDICARE, OTHER, SELFPAY ==
[2019-09-12 12:59] LABS: Chloride 94 mmol/L (98-107); Potassium 4.9 mmoL/L (3.5-5.1); Sodium 133 mmol/L (136-145)
[2019-09-12 13:02] LABS: Anion Gap 14.9 mEq/L (5-15); Blood Urea Nitrogen 25 mg/dl (7-17); Carbon Dioxide 29 mmol/L (22.0-30.0); Estimated Glomerular Filt Rate 60 ml/min (>60); GFR (African American) 73 ML/MIN (>60)
[2019-09-12 13:03] LABS: Calcium 9.6 mg/dl (8.4-10.2); Glucose 94 mg/dl (74-100)
[2019-09-12 13:12] LABS: NT Pro Brain Natriuretic Pep. 304 pg/mL (0-450)
== END ==
PROVIDERS: Visit Provider Internal Medicine Cardiovascular Disease
DX: E78.5 Hyperlipidemia, unspecified (principal); I11.9 Hypertensive heart disease without heart failure; I25.10 Atherosclerotic heart disease of native coronary artery without angina pectoris; R53.83 Other fatigue; R60.9 Edema, unspecified; I21.4 Non-ST elevation (NSTEMI) myocardial infarction
CPT/HCPCS: 36415; 80048; 83880

== ENCOUNTER → 2019-11-25 10:38 | Outpatient (POV) | payer MEDICARE, OTHER, SELFPAY | PROVIDERS: Visit Provider Dermatology | DX: Z00.00 Encounter for general adult medical examination without abnormal findings (principal) ==

== ENCOUNTER → 2020-01-01 11:27 | Outpatient (CLI) | payer MEDICARE, OTHER, SELFPAY ==
[2020-01-01 12:54] LABS: Anion Gap 13.7 mEq/L (5-15); Blood Urea Nitrogen 17 mg/dl (7-17); Calcium 10.1 mg/dl (8.4-10.2); Carbon Dioxide 29 mmol/L (22.0-30.0); Chloride 95 mmol/L (98-107); Estimated Glomerular Filt Rate 60 ml/min (>60); GFR (African American) 73 ML/MIN (>60); Glucose 100 mg/dl (74-100); Potassium 4.7 mmoL/L (3.5-5.1); Sodium 133 mmol/L (136-145)
== END ==
PROVIDERS: Visit Provider Internal Medicine Cardiovascular Disease
DX: D3A.090 Benign carcinoid tumor of the bronchus and lung (principal); E78.5 Hyperlipidemia, unspecified; I11.9 Hypertensive heart disease without heart failure; I42.1 Obstructive hypertrophic cardiomyopathy; R05 Cough; R06.00 Dyspnea, unspecified; R60.9 Edema, unspecified
CPT/HCPCS: 36415; 80048

== ENCOUNTER 2020-04-07 16:26 | Emergency (ER) | payer MEDICARE, OTHER, SELFPAY ==
[2020-04-07] VITALS (9 sets, daily range): BP systolic 143–216; BP diastolic 80–109; PULSE 68–77; RESP 16–22; TEMP 36.5–36.6; O2SAT 94–98; BMI 23.9
--- NOTE | 2020-04-07 16:22 | ECG_ITS ---
APPROVED REPORT Exam: Resting ECG HR:72 bpm ECG Measurements Heart Rate 72 AXES MI 164 P 65 QRSd 74 QRS 61 QT 376 T 73 QTc 411 Conclusion Normal sinus rhythm Late r wave progression Abnormal ECG Electronically signed by : William Garcia, 04/08/2020 14:27:23
--- NOTE | 2020-04-07 16:31 | XR_ITS ---
PROCEDURE: XR CHEST PORTABLE CLINICAL HISTORY: CHEST PAIN COMPARISON: CR CXR2V XR chest 2V from 04/23/[address] chest wo/w con from 04/26/2018 CR CXR1VP XR chest portable from 05/09/2018 FINDINGS: The cardiomediastinal silhouette and pulmonary vascularity are within normal limits. There is elevated right hemidiaphragm with atelectatic change in the right lung base. Vague density is present in the right upper lobe nonspecific. Previously there was pneumonia in this area on 05/09/2018 which has improved. Atelectasis or infiltrate noted in the left lung base with low lung volumes. There is a bone plate along the lower cervical spine IMPRESSION: Poor inspiration with bibasilar atelectasis or infiltrate with possible faint infiltrate or scarring in the right upper lobe Dictated by: Yunior Greco MD 04/07/2020 17:40 Yunior Greco MD in [facility] 04/07/2020 17:40
--- NOTE | 2020-04-07 16:35 | HMH.EDGENADL ---
ED Disposition Clinical Impression: Stable angina Chest pain Qualifiers: Chest pain type: chest pain due to myocardial ischemia Ischemic chest pain type: stable angina pectoris Qualified Code(s): I20.8 - Other forms of angina pectoris Disposition: Home, Self-Care Condition on Discharge: Fair Instructions: DI for Atypical Chest Pain Additional Instructions: Follow-up with cardiology for further evaluation on Sunday at 9 AM. Take Imdur as prescribed once daily. Advised to return emergency department if pain continues to worsen or you start having worsening difficulty breathing but treatment. Prescriptions: Isosorbide Mononitrate [Imdur 30mg ER tablet] 1 tab OD DAILY 30 Days #30 tab.er.24h Transmission Status: Pending to [facility] #[id number] Referrals: Provider,MD Austin [Primary Care Provider] - Gopal Cantu MD [Staff Physician] - - Critical Care Critical Care Time: No Attestation: On 04/07/20, the high probability of a clinically significant, sudden or life threatening deterioration of the following system(s) required my full and direct attention, intervention and personal management. The time I documented below is in addition to time spent performing reported procedures but includes the following listed in this critical care notation. Medical Decision Making - Medical Records Medical records reviewed: Yes: I reviewed the patient's medical records. - Ron Inquiry Pt receiving controlled substance: No Vital Signs: 04/07/20 16:26 04/07/20 16:31 04/07/20 16:32 Temperature 97.7 F Temperature Source Oral Pulse Rate [Radial] 77 71 Respiratory Rate 18 Blood Pressure [Left Arm] 179/95 H Blood Pressure [Right Arm] 216/109 H 196/107 H Blood Pressure Mean [Left Arm] 123 Blood Pressure Mean [Right Arm] 144 136 Blood Pressure Source [Left Arm] Blood Pressure Source [Right Arm] Blood Pressure Position [Left Arm] Sitting Blood Pressure Position [Right Arm] Sitting Sitting 02 Sat by Pulse Oximetry 98 96 Oxygen Delivery Method Room Air Room Air 04/07/20 16:44 04/07/20 16:52 04/07/20 18:10 Temperature Temperature Source Pulse Rate [Radial] 73 73 Respiratory Rate 16 18 Blood Pressure [Left Arm] 162/86 H 143/80 H Blood Pressure [Right Arm] 183/92 H Blood Pressure Mean [Left Arm] 111 101 Blood Pressure Mean [Right Arm] 122 Blood Pressure Source [Left Arm] Blood Pressure Source [Right Arm] Automatic Cuff Blood Pressure Position [Left Arm] Sitting Sitting Blood Pressure Position [Right Arm] Sitting 02 Sat by Pulse Oximetry 96 96 Oxygen Delivery Method Room Air Room Air 04/07/20 18:30 04/07/20 19:00 Temperature Temperature Source Pulse Rate [Radial] 68 68 Respiratory Rate 22 18 Blood Pressure [Left Arm] 185/90 H 181/94 H Blood Pressure [Right Arm] Blood Pressure Mean [Left Arm] 121 123 Blood Pressure Mean [Right Arm] Blood Pressure Source [Left Arm] Automatic Cuff Automatic Cuff Blood Pressure Source [Right Arm] Blood Pressure Position [Left Arm] Sitting Sitting Blood Pressure Position [Right Arm] 02 Sat by Pulse Oximetry 94 L 94 L Oxygen Delivery Method Room Air - Lab Data Lab Results 04/07/20 16:24: WBC 9.8, RBC 4.10 L, Hgb 12.9, Hct 39.1, MCV 95.4, MCH 31.5 H, MCHC 33.1, RDW 13.3, Plt Count 474 H, MPV 6.9 L, Neut % (Auto) 57.0, Lymph % (Auto) 31.9, Falls % (Auto) 5.9, Eos % (Auto) 4.2, Baso % (Auto) 1.0, Neut # (Auto) 5.6, Lymph # (Auto) 3.1, Falls # (Auto) 0.6, Eos # (Auto) 0.4, Baso # (Auto) 0.1 04/07/20 16:24: Sodium 130 L, Potassium 4.6, Chloride 96 L, Carbon Dioxide 27, Anion Gap 11.6, BUN 23 H, Creatinine 0.90, Estimated Creat Clear 44, Estimated GFR 60, Est GFR ( Amer) 73, Glucose 116 H, Calcium 9.3, Troponin I 0.06 H 04/07/20 16:24: D-Dimer 0.74 04/07/20 16:24: SARS-CoV-2 IgG Ab (Rapid) Negative, SARS-CoV-2 IgM Ab (Rapid) Negative 04/07/20 19:33: Troponin I 0.06 H Result diagrams: 04/07/20 16:24 04/07/20
[2020-04-07 16:40] LABS: Basophils # 0.1 K/mm3 (0-0.2); Chloride 96 mmol/L (98-107); Eosinophils # 0.4 K/mm3 (0.0-0.4); Eosinophils % 4.2 % (0.1-12.0); Hematocrit 39.1 % (37.0-47.0); Hemoglobin 12.9 g/dL (12.2-16.2); Lymphocytes # 3.1 K/mm3 (0.7-4.5); Lymphocytes % 31.9 % (10-50); Mean Corpuscular HGB Conc 33.1 g/dL (31.8-35.4); Mean Corpuscular Hemoglobin 31.5 pg (27.0-31.2); Mean Corpuscular Volume 95.4 fl (81-99); Mean Platelet Volume 6.9 fl (7.4-10.4); Monocytes # 0.6 K/mm3 (0.1-1.0); Monocytes % 5.9 % (1.7-9.3); Neutrophils # 5.6 K/mm3 (1.8-7.8); Platelet Count 474 K/mm3 (142-424); Red Cell Distribution Width 13.3 % (11.5-17.5); White Blood Count 9.8 K/mm3 (4.8-10.8)
[2020-04-07 16:41] LABS: Potassium 4.6 mmoL/L (3.5-5.1); Sodium 130 mmol/L (136-145)
[2020-04-07 16:44] LABS: Anion Gap 11.6 mEq/L (5-15); Blood Urea Nitrogen 23 mg/dl (7-17); Calcium 9.3 mg/dl (8.4-10.2); Carbon Dioxide 27 mmol/L (22.0-30.0); Creatinine Clearance Estimated 44 mL/min (50-200); Estimated Glomerular Filt Rate 60 ml/min (>60); GFR (African American) 73 ML/MIN (>60); Glucose 116 mg/dl (74-100)
[2020-04-07 16:56] LABS: Troponin I 0.06 ng/ml (0.00-0.034)
[2020-04-07 16:57] LABS: D-Dimer 0.74 ug/mL (0.15-8.0)
[2020-04-07 18:30] LABS: Coronavirus 19 IgG Antibody Negative (Negative); Coronavirus 19 IgM Antibody Negative (Negative)
[2020-04-07 19:57] LABS: Troponin I 0.06 ng/ml (0.00-0.034)
--- NOTE | 2020-04-07 20:08 | PC.NURSE ---
Uziel JOSUE on phone with Pepe @ this time
== END 2020-04-07 20:27 | disposition home or self-care (01) ==
PROVIDERS: Emergency Provider Emergency Medicine
DX: I20.8 Other forms of angina pectoris (principal); Z01.84 Encounter for antibody response examination; I25.2 Old myocardial infarction; I25.10 Atherosclerotic heart disease of native coronary artery without angina pectoris; I10 Essential (primary) hypertension; E78.5 Hyperlipidemia, unspecified; E03.9 Hypothyroidism, unspecified; K21.9 Gastro-esophageal reflux disease without esophagitis; Z79.899 Other long term (current) drug therapy; Z88.2 Allergy status to sulfonamides
CPT/HCPCS: 71045; 80048; 84484; 85025; 85378; 86328; 93005; 99283

== ENCOUNTER → 2020-04-19 07:39 | Outpatient (CLI) | payer MEDICARE, OTHER, SELFPAY ==
--- NOTE | 2020-04-19 | NM_ITS ---
APPROVED REPORT Exam: Nuclear Stress Test Indication: CAD, HX MT, HTN, FM HX., C.P., SOB Patient Location: Outpatient Stress Tech: Antonette Iyer ID Tech:Rekha Callejas, ARRT, RT (R)(N) Ht: 5 ft 3 in Wt: 138 lbs Bra Size: 34B HR: 55 bpm BP: 146/74 mmHg BSA: 1.65 m2 BMI: 24.4 History: CAD, HX MT, HTN, FM HX., C.P., SOB Procedure: Patient received a 0.4 mg of intravenous Lexiscan, resting heart rate 55 bpm, resting blood pressure 146/74 mmHg, with Lexiscan maximum heart rate achived was 83 bpm which is Less than 85 % of the maximum predicted heart rate and blood pressure was 101/51 mmHg. With Lexiscan, patient denied any complaint of chest pain. Electrocardiogram Resting electrocardiogram showed sinus rhythm nonspecific ST-T changes, with Lexiscan there is less than 1.[address] segment depression noted from the baseline EKG. The EKG portion of the Lexiscan is nondiagnostic. Cardiac Stress and Resting SPECT Images: Cardiac Stress and Resting SPECT images were obtained using technetium 99m Myoview 28.7 mCi stress and 9.58 mCi at rest. Gated SPECT for analysis of segmental wall motion and calculation of the ejection fraction also done. Cardiac stress and resting SPECT images show uniform myocardial activity without segmental perfusion abnormality, computer derived ejection fraction is over 65% with no regional wall motion abnormality, right ventricle is normal size and contractility. Conclusion: 1. The EKG portion of the Lexiscan is nondiagnostic. 2. No scintigraphic evidence of reversible ischemia seen, computer derived ejection fraction is over 65% with no regional wall motion abnormality, right ventricle is normal size and contractility. 3. Normal Lexiscan Myoview study. Electronically signed by : Santana Pineda, 04/20/2020 07:35:02
--- NOTE | 2020-04-19 | CA_ITS ---
APPROVED REPORT Exam: Pharmacologic Technologist: Antonette Iyer Ht: 5 ft 3 in Wt: 137 lbs BSA: 1.65 m2 HR: 55 bpm BP: 146/74 mmHg Indications: Angina, Shortness of Breath Medical History Medications: Levothyroxine,,,,, Furosemide (LASIX),,,,, Isosorbide,,,,, Aspirin,,,,, Metoprolol,,,,, Losartan,,,,, Premarin,,,,, Pantoprazole,,,,, Atorvastatin,,,,, Buspirone,,,,, CloPIdogrel,,,,, LoraTidine,,,,, Stress Test Details Test: LEXISCAN HR Resting HR: 60 bpm Max Heart Rate (APMHR): 141 bpm Max HR Achieved: 85 bpm Target HR (85% APMHR): 119 bpm % of APMHR: 60 Recovery HR: 73 bpm BP Resting BP: 146.0/74.0 mmHg Max BP: 147.0/66.0 mmHg Recovery BP: 147.0/66.0 mmHg ECG Resting ECG: Sinus bradycardia with NSST abnormalities inferiorly Clinical Reason for Termination: Completed Protocol Exercise duration: 04:01 min Highest Stage Achieved: Stress ECG Conclusion Symptoms: None Arrhythmias/Ectopy: None ST-T Changes: < 1.[address] segment changes. Exacerbation of baseline inferior ST segment abnormalities noted. Conclusion: Abnormal non-diagnostic lexiscan stress test. Patient received the infusion per protocol without chest pain or arrhythmias. Baseline EKG is sinus bradycardia with non-specific ST segment abnormalities that were exacerbated during stress. See the nuclear report for further information. Test Summary REST . . . . . . . Resting REST 44:31 . . 60 . 146/ 74 . . Stage 1 . . . . . . . Myoview Injected Stage 1 01:00 . . 69 . . . . Stage 2 01:00 . . 84 . 101/ 51 . . Stage 3 01:00 . . 85 . 114/ 56 . . Stage 4 01:00 . . 81 . 132/ 62 . . Stage 4 01:01 . . 81 . 132/ 62 . Stop exercise at 04:01 RECOVERY 01:00 . . 78 . 139/ 68 . . RECOVERY 02:00 . . 75 . 139/ 68 . . RECOVERY 03:00 . . 74 . 147/ 66 . . RECOVERY 03:20 . . 72 . 147/ 66 . . Electronically signed by : Santana Pineda, 04/20/2020 07:05:39
--- NOTE | 2020-04-19 09:14 | CA_ITS ---
APPROVED REPORT EXAM: Comprehensive 2D, Doppler, and color-flow Echocardiogram Aerospace Manager: Dixie Canales CRT Ht: 5 ft 3 in Wt: 137lbs BSA: 1.65 BP: 164/81 mmHg Indications: Chest Pain, Pulmonary Hypertension, Shortness of Breath, Peripheral Edema, Hyperlipidemia, Cardiomyopathy, Hypertension/HDD 2D Dimensions LVOT 1.42 cm (M/F) 1.5-2.5 M-Mode Dimensions RVDd 2.48 cm (0.9-2.6) LA Diam 3.50 cm (1.9-4.0) LVDd 3.28 cm (3.5-5.7) Ao Diam 2.89 cm (2.0-3.7) LVDs 1.79 cm (3.5-5.7) IVSd 1.82 cm (0.6-1.1) PWd 0.99 cm (0.6-1.1) EF (Teich) 77.90% FS 45.40% EDV (Teich) 43.50 mL ESV (Teich) 9.60 mL LV Diastology E Decel Time 150.00 (160-240 msec) E/A Ratio 0.34 MED E' 5.70 (< 7 cm/sec) E'/MED E' Ratio 19.32 (>14) LAT E' 7.30 (<10 cm/sec) E/LAT E' Ratio 15.08 (>14) Aortic Valve AI PHT 485.00 ms AO Peak GR. 8.40 mmHg Mitral Valve MV E Max Armond. 110.00 (40-130 cm/s) MV A Velocity 325.00 (40-130 cm/s) E/A Ratio 0.34 MV Decel. Time 150.00 (160-240 ms) MV PHT 44.00 ms Pulmonary Valve PV Peak Velocity 40.00 (50-150 cm/s) Tricuspid Valve TR P. Velocity 290.00 cm/s RAP Estimate 10.00 mmHg RVSP 43.60 mmHg Left Ventricle Left atrium is mildly enlarged, left ventricle is normal size, mild concentric left ventricular hypertrophy, septum is sigmoid configuration, visually estimated ejection fraction is 60% with no regional wall motion abnormality, diastolic parameters are inconclusive, there is systolic anterior motion of the mitral valve leaflet, however there is no significant left ventricular outflow tract dynamic obstruction demonstrated in the study, repeat study with better Doppler technique as well as Valsalva is recommended for further assessment. Right Ventricle Right atrium and right ventricle are normal size and contractility. Aortic Valve Aortic valve is thickened and calcified leaflet continue to display good mobility, there is no aortic stenosis, there is mild aortic insufficiency. Mitral Valve Mitral valve leaflets are minimally thickened, there is mild mitral regurgitation. There is systolic anterior motion of the mitral valve leaflet towards left ventricular outflow tract. Tricuspid Valve Tricuspid valve is grossly normal. There is mild tricuspid regurgitation. Pulmonic Valve Pulmonic valve is poorly visualized. Great Vessels Aortic root is normal size. Pericardium No significant pericardial effusion noted. Conclusion 1. Mildly enlarged left atrium, normal left ventricular size, mild concentric left ventricular hypertrophy, septum is sigmoid configuration, visually estimated ejection fraction 60% with no obvious regional wall motion abnormality, there is systolic anterior motion of the mitral valve leaflet towards left ventricular outflow tract, however there is no demonstrable dynamic obstruction seen in the valve left ventricular outflow tract in this study, repeat study with better Doppler technique as well as Valsalva is recommended. 2. Thickened and calcified aortic valve without aortic stenosis, there is mild aortic insufficiency. 3. Mild mitral and tricuspid regurgitation. 4. No significant pericardial effusion noted. Electronically signed by : Santana Pineda, 04/20/2020 06:01:55
--- NOTE | 2020-04-19 10:16 | HMH.ITSHM ---
Current Home Medications as stated by this patient Clara Garcia or dental detail representative. []LINZESS LEVOTHYROXINE FUROSEMIDE LOSARTAN SPIRONOLACTONE TOPROL VENLAFAXINE BUSPIRONE CLOPIDOGREL LORATADINE ASA ATORVASTATIN PREMARIN PANTOPRAZOLE ALBUTEROL
== END ==
PROVIDERS: PCP Family Medicine; Visit Provider Nurse Practitioner Family
DX: R07.9 Chest pain, unspecified (principal); R06.02 Shortness of breath
CPT/HCPCS: 78452; 93017; 93306; A9502; J2785

== ENCOUNTER → 2020-04-26 10:39 | Outpatient (CLI) | payer MEDICARE, OTHER, SELFPAY ==
--- NOTE | 2020-04-26 10:41 | CA_ITS ---
APPROVED REPORT EXAM: Limited 2D Echocardiogram Tricot Knitter: Xochitl Lopez RDCS Ht: 5 ft 3 in Wt: 137lbs BSA: 1.65 BP: 140/80 mmHg Indications: ?LVOT OBSTRUCTION TONY? VALSALVA Conclusion 1. Limited echo was performed to evaluate the dynamic obstruction in the left ventricle outflow tract, there is systolic anterior motion of the mitral valve leaflets seen. 2. Despite multiple attempts, the accurate assessment of left ventricular outflow dynamic obstruction is difficult to obtain from this study, there is moderate mitral regurgitation present. 3. No significant pericardial effusion noted. Electronically signed by : Santana Pineda, 04/27/2020 06:16:27
[2020-04-26 13:40] LABS: Chloride 95 mmol/L (98-107); Potassium 4.8 mmoL/L (3.5-5.1); Sodium 133 mmol/L (136-145)
[2020-04-26 13:43] LABS: Anion Gap 12.8 mEq/L (5-15); Blood Urea Nitrogen 21 mg/dl (7-17); Calcium 10.4 mg/dl (8.4-10.2); Carbon Dioxide 30 mmol/L (22.0-30.0); Estimated Glomerular Filt Rate 69 ml/min (>60); GFR (African American) 84 ML/MIN (>60); Glucose 101 mg/dl (74-100)
== END ==
PROVIDERS: PCP Family Medicine; Visit Provider Physician Assistant
DX: R06.00 Dyspnea, unspecified (principal); R06.01 Orthopnea; R06.02 Shortness of breath; D3A.090 Benign carcinoid tumor of the bronchus and lung; E78.2 Mixed hyperlipidemia; I11.9 Hypertensive heart disease without heart failure; I25.118 Atherosclerotic heart disease of native coronary artery with other forms of angina pectoris; I42.1 Obstructive hypertrophic cardiomyopathy; R60.0 Localized edema
CPT/HCPCS: 36415; 80048; 93308

== ENCOUNTER 2020-07-04 16:33 | Inpatient (IN) | payer MEDICARE, OTHER, SELFPAY ==
[2020-07-04] VITALS (8 sets, daily range): BP systolic 113–163; BP diastolic 68–86; PULSE 68–117; RESP 14–18; TEMP 36.6–37; O2SAT 95–98; BMI 23.9; BMI 23.2
--- NOTE | 2020-07-04 16:52 | XR_ITS ---
PROCEDURE: XR CHEST PORTABLE CLINICAL HISTORY: CP Chest pain COMPARISON: CR CXR2V XR chest 2V from 04/23/[address] chest wo/w con from 04/26/2018 CR CXR1VP XR chest portable from 05/09/2018 CR XR CHEST PORTABLE from 04/07/[address] ANGIO CHEST from 07/04/2020 FINDINGS: The cardiomediastinal silhouette and pulmonary vascularity are within normal limits. Right perihilar mass once again noted at 2.4 cm. Bone plate is present along the lower cervical spine. IMPRESSION: Right perihilar mass. Dictated by: Yunior Greco MD 07/05/2020 05:48 Yunior Greco MD in [place] 07/05/2020 05:48
--- NOTE | 2020-07-04 16:52 | ECG_ITS ---
APPROVED REPORT Exam: Resting ECG HR:119 bpm ECG Measurements Heart Rate 119 AXES PA 154 P 82 QRSd 74 QRS 83 QT 296 T 66 QTc 416 Conclusion Sinus tachycardia Anterior infarct, age undetermined Abnormal ECG Electronically signed by : William Garcia, 07/05/2020 17:21:46
--- NOTE | 2020-07-04 16:52 | CT_ITS ---
PROCEDURE: CT ANGIO CHEST CLINCIAL INDICATION: CP THAT RADIATES TO BACK Chest pain and pressure COMPARISON: CT CHESTWW CT chest wo/w con from 04/26/2018 TECHNIQUE: IV Contrast: 70ML Isovue 370 Axial images obtained with sagittal and coronal reformats. All CT scans at the facility use one or more dose reduction, viz: automated exposure control, ma/kV adjustment per patient size (including targeted exams where dose is matched to indication, i.e. head), or iterative reconstruction technique. FINDINGS: No evidence of pulmonary embolus. Multilobulated right upper lobe mass is once again noted with extension to the right hilum. This has increased in size compared to the previous exam measuring approximately 3 by 2.3 cm cephalad caudad and AP. This previously measured 2.7 x 1.9 cm in the same dimensions. This does appear to be encasing a small artery. Right lower lobe nodule is present measuring approximately 11 mm transverse previously 10 mm. There are low lung volumes with vascular crowding in the lung bases. There is a 7 mm nodule in the lingula unchanged. There is mild prominence of interstitial markings in the lung apices with faint ground-glass attenuation in the right upper lobe and mosaic attenuation in the lower lobes possibly due to COPD/air trapping. No effusions. No areas of consolidation. No acute bony findings. There is a 2 cm nodule in the right breast laterally. This was not present on the previous exam a calcific density or a clip is present just lateral to this nodule. Has the patient had and biopsy of this region. There are no mammograms or ultrasounds of the breast available for comparison. Fatty and soft tissue nodule noted involving the left kidney consistent with an adrenal myelolipoma at 3.4 x 2.4 cm. Hypodense nodules present in the right hepatic lobe indeterminate at 6 mm. There may be some sludge in the gallbladder. Coronary artery calcifications and/or stents noted. IMPRESSION: 1. No evidence of pulmonary embolus. 2. Enlarging right upper lobe mass with extension to the hilum consistent with neoplasm. 3. Nodules in the right lower lobe and lingula which could be due to metastatic foci. The right lower lobe nodule may be slightly larger. This however is questionable. These nodules may also be benign. 4. Right breast nodule. Consider mammogram and ultrasound for further evaluation. 5. Left adrenal myelolipoma. 6. Indeterminate lesion of the right hepatic lobe Dictated by: Yunior Greco MD 07/05/2020 10:57 Yunior Greco MD in [place] 07/05/2020 10:57
[2020-07-04 17:01] LABS: Basophils # 0.1 K/mm3 (0-0.2); Basophils % 0.6 % (0.1-2.0); Eosinophils # 0.2 K/mm3 (0.0-0.4); Eosinophils % 2.1 % (0.1-12.0); Hemoglobin 11.6 g/dL (12.2-16.2); Lymphocytes # 2.5 K/mm3 (0.7-4.5); Lymphocytes % 24.3 % (10-50); Mean Corpuscular HGB Conc 34.1 g/dL (31.8-35.4); Mean Corpuscular Hemoglobin 30.5 pg (27.0-31.2); Mean Corpuscular Volume 89.5 fl (81-99); Mean Platelet Volume 6.7 fl (7.4-10.4); Monocytes # 0.5 K/mm3 (0.1-1.0); Monocytes % 4.4 % (1.7-9.3); Neutrophils # 7.2 K/mm3 (1.8-7.8); Neutrophils % 68.7 % (37.0-80.0); Platelet Count 392 K/mm3 (142-424); Red Blood Count 3.79 M/mm3 (4.20-5.40); Red Cell Distribution Width 12.8 % (11.5-17.5); White Blood Count 10.5 K/mm3 (4.8-10.8)
--- NOTE | 2020-07-04 17:04 | HMH.EDCP ---
ED Disposition Clinical Impression: Atypical chest pain Disposition: Admitted As Inpatient Condition on Discharge: Good Instructions: DI for Atypical Chest Pain Additional Instructions: Please follow-up with your PCP for further evaluation of angina Please follow-up with your professor of astronomy for further evaluation If symptoms persist or worsen, please return to the ED for further evaluation Referrals: Livia Griggs [Primary Care Provider] - - Critical Care Critical Care Time: No Attestation: On 07/04/20, the high probability of a clinically significant, sudden or life threatening deterioration of the following system(s) required my full and direct attention, intervention and personal management. The time I documented below is in addition to time spent performing reported procedures but includes the following listed in this critical care notation. Medical Decision Making - Medical Records Medical records reviewed: Yes: I reviewed the patient's medical records. - Ron Inquiry Pt receiving controlled substance: No Vital Signs: 07/04/20 16:34 07/04/20 17:00 07/04/20 17:15 Temperature 98.3 F Temperature Source Oral Pulse Rate 100 H 95 H Pulse Rate [Right] 117 H Respiratory Rate 18 17 Blood Pressure 128/74 135/69 Blood Pressure [Right Arm] 139/86 Blood Pressure Mean 92 Blood Pressure Mean [Right Arm] 103 02 Sat by Pulse Oximetry 97 96 95 Oxygen Delivery Method Room Air 07/04/20 17:25 07/04/20 17:30 07/04/20 18:00 Temperature Temperature Source Pulse Rate 100 H 91 H 81 Pulse Rate [Right] Respiratory Rate 16 14 Blood Pressure 135/69 113/68 117/70 Blood Pressure [Right Arm] Blood Pressure Mean 91 83 85 Blood Pressure Mean [Right Arm] 02 Sat by Pulse Oximetry 96 96 95 Oxygen Delivery Method - Lab Data Lab Results 07/04/20 16:34: Sodium 131 L, Potassium 4.1, Chloride 98, Carbon Dioxide 27, Anion Gap 10.1, BUN 17, Creatinine 0.80, Estimated Creat Clear 44, Estimated GFR 69, Est GFR ( Amer) 84, Glucose 123 H, Calcium 9.2 07/04/20 16:36: WBC 10.5, RBC 3.79 L, Hgb 11.6 L, Hct 34.0 L, MCV 89.5, MCH 30.5, MCHC 34.1, RDW 12.8, Plt Count 392, MPV 6.7 L, Neut % (Auto) 68.7, Lymph % (Auto) 24.3, [place] % (Auto) 4.4, Eos % (Auto) 2.1, Baso % (Auto) 0.6, Neut # (Auto) 7.2, Lymph # (Auto) 2.5, [place] # (Auto) 0.5, Eos # (Auto) 0.2, Baso # (Auto) 0.1 07/04/20 16:36: Magnesium 1.7, Troponin I 0.06 H, NT-Pro-B Natriuret Pep 584 H 07/04/20 19:45: Troponin I 0.16 H Result diagrams: 07/04/20 16:36 07/04/20 16:34 Orders (Tests/Meds): ED MEDICATIONS Discontinued Medications Generic Name Dose Route Start Last Admin Trade Name Freq PRN Reason Stop Dose Admin Iopamidol 70 ml 07/04/20 18:51 07/04/20 18:52 Iopamidol-370 (76%);100ml Bottle IV 07/04/20 18:52 70 ml ONCE ONE Administration Sodium Chloride 50 ml 07/04/20 18:51 07/04/20 18:52 0.9 % Sodium Chloride 50 Ml Vial IV 07/04/20 18:52 50 ml ONCE ONE Administration Sodium Chloride 10 ml 07/04/20 18:51 07/04/20 18:52 Sodium Chloride 0.9% 10ml Syr (Rad Only) IV 07/04/20 18:52 10 ml ONCE ONE Administration ORDERS Category Date Time Status CT angio chest Stat Cat Scan 07/04/20 16:52 Taken XR chest portable Stat Exams 07/04/20 16:52 Taken Troponin I Q3H Lab 07/04/20 23:00 Ordered Medical Decision Narrative: 79yo female with a history of multiple cardiac stents and hypertension presents with chest pain that radiates to her back. Differential diagnosis includes but is not limited to ACS, aortic dissection, GERD, PE. Labs including CBC, CMP, BNP, troponins were obtained along with a chest x-ray and a CTA of the chest. I reviewed patient's labs and images. Patient's labs initiated a stable anemia, mildly elevated initial troponin. Patient's BNP was mildly elevated, however, her chest x-ray did not demonstrate signs of volume overload. Patient CTA of the chest did not demonst
[2020-07-04 17:05] LABS: Magnesium 1.7 mg/dl (1.6-2.3)
[2020-07-04 17:15] LABS: NT Pro Brain Natriuretic Pep. 584 pg/mL (0-450)
[2020-07-04 17:18] LABS: Troponin I 0.06 ng/ml (0.00-0.034)
[2020-07-04 18:14] LABS: Chloride 98 mmol/L (98-107); Potassium 4.1 mmoL/L (3.5-5.1); Sodium 131 mmol/L (136-145)
[2020-07-04 18:17] LABS: Anion Gap 10.1 mEq/L (5-15); Blood Urea Nitrogen 17 mg/dl (7-17); Calcium 9.2 mg/dl (8.4-10.2); Carbon Dioxide 27 mmol/L (22.0-30.0); Creatinine Clearance Estimated 44 mL/min (50-200); Estimated Glomerular Filt Rate 69 ml/min (>60); GFR (African American) 84 ML/MIN (>60); Glucose 123 mg/dl (74-100)
--- NOTE | 2020-07-04 18:27 | PC.NURSE ---
PT GOING TO RAD AT THIS TIME.
[2020-07-04 20:18] LABS: Troponin I 0.16 ng/ml (0.00-0.034)
--- NOTE | 2020-07-04 20:31 | PC.NURSE ---
dr. cespedes is on the phone with dr. conte.
--- NOTE | 2020-07-04 23:43 | PC.NURSE ---
PT ARRIVED TO FLOOR VIA WHEELCHAIR @ 1372
[2020-07-05] VITALS (25 sets, daily range): BP systolic 93–177; BP diastolic 59–100; PULSE 60–89; RESP 16–18; TEMP 36.6–36.9; O2SAT 94–100; BMI 23.2; BMI 23.4
--- NOTE | 2020-07-05 | IR_ITS ---
APPROVED REPORT Patient Location: Inpatient Loan Processor: SARTHAK Jung RT (R) PROCEDURES Left heart catheterization Left ventriculogram Selective coronary angiogram Bilateral selective renal angiography INDICATION Known coronary disease, Elevated troponin consistent with acute coronary syndrome, Renovascular hypertension suspected based on vascular disease and hypertension Informed consent was obtained prior to the procedure. COMPLICATIONS NONE Estimated Blood Loss: LESS THAN 10 ML TECHNIQUE 1% lidocaine used anesthetize right groin the right femoral artery was accessed via the Salinger technique and a 4 Niuean sheath was placed in the right femoral artery. A JL4 JR4 catheter used to perform left heart catheterization left ventriculogram and selective coronary angiogram. Because of patient's LVEDP of nearly 35 to 40 mmHg it was decided to proceed with bilateral selective renal angiography looking for fibromuscular dysplasia or renal artery stenosis. The JR4 catheter was used to selectively intubate each renal artery and perform angiography. At the end of the procedure the patient was transferred to the postop holding area stable condition for sheath removal ANGIOGRAPHIC RESULTS The left main artery Normal The left anterior descending artery Has proximal 10% stenosis followed by a proximal to mid vessel stent which is widely patent free of in-stent restenosis with excellent proximal distal transitioning. First diagonal artery has a stent which originates off the left anterior descending artery which is widely patent free of in-stent restenosis with excellent distal transitioning The circumflex artery Gives rise to a small to moderate ramus intermedius which has proximal 20% stenosis. The circumflex artery small nondominant and normal The right coronary artery Is a large dominant vessel with mild diffuse 10% luminal irregularities The [place] ventriculogram reveals Hyperdynamic at 70 to 75% The left ventricular end-diastolic pressure Severely elevated at 35 to 40 mmHg The right renal artery singular and has mid vessel mild fibromuscular dysplastic lesions The left renal artery singular and has mid vessel mild fibromuscular dysplastic lesions IMPRESSION Coronary disease as described above Hyperdynamic ventricle secondary to hypertensive heart disease Severely elevated LVEDP which likely accounts for the elevated troponin 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 Medical management for coronary artery disease 2. Better control of hypertension 3. Liberalize diuretics in order to decrease LVEDP Electronically signed by : Gopal Cantu, 07/05/2020 14:03:30
--- NOTE | 2020-07-05 05:21 | PC.NURSE ---
No acute changes noted since pt arrived to floor. Pt has been NSR on telemetry. Has denied any CP. Pt had soup, PB crackers, pudding and OJ. She is currently NPO for AM cardiac consult. VSS. Pt remains on RA. Call light within reach. Will continue to monitor.
--- NOTE | 2020-07-05 07:33 | P.CONPHA_ITS ---
[facility] Pharmacy VTE Monitoring - Patient Demographics Admission date: 07/04/20 Report Date: 07/05/20 Time: 07:33 Allergies/Adverse Reactions: Patient Allergies Sulfa (Sulfonamide Antibiotics) Allergy (Verified 07/04/20 23:57) sulfamethoxazole [From Bactrim] Allergy (Verified 07/04/20 23:57) trimethoprim [From Bactrim] Allergy (Verified 07/04/20 23:57) Height: 1.6 m Weight: 59.506 kg Patient Problems: Current Active Problems Atypical chest pain (Acute) - VTE Risk Labs: VTE Related Lab Results Hgb 11.6 g/dL (12.2-16.2) L 07/04/20 16:36 Hct 34.0 % (37.0-47.0) L 07/04/20 16:36 Plt Count 392 K/mm3 (142-424) 07/04/20 16:36 BUN 17 mg/dl (7-17) 07/04/20 16:34 Creatinine 0.80 mg/dl (0.52-1.04) 07/04/20 16:34 Estimated Creat Clear 44 mL/min (50-200) 07/04/20 16:34 Was VTE Risk Assessment Performed: Yes VTE Score: 5 VTE Risk Level: Low Risk - Prophylaxis VTE Prophylaxis Ordered?: Yes Types of VTE Prophylaxis: TEDS Knee High Location of Applied Device: Bilateral Lower Extremeties
[2020-07-05 07:56] LABS: Basophils # 0.1 K/mm3 (0-0.2); Basophils % 0.8 % (0.1-2.0); Eosinophils # 0.4 K/mm3 (0.0-0.4); Eosinophils % 4.8 % (0.1-12.0); Hematocrit 34.5 % (37.0-47.0); Hemoglobin 11.5 g/dL (12.2-16.2); Lymphocytes # 2.3 K/mm3 (0.7-4.5); Lymphocytes % 29.2 % (10-50); Mean Corpuscular HGB Conc 33.2 g/dL (31.8-35.4); Mean Corpuscular Hemoglobin 30.4 pg (27.0-31.2); Mean Corpuscular Volume 91.5 fl (81-99); Mean Platelet Volume 6.9 fl (7.4-10.4); Monocytes # 0.5 K/mm3 (0.1-1.0); Monocytes % 6.2 % (1.7-9.3); Neutrophils # 4.6 K/mm3 (1.8-7.8); Platelet Count 377 K/mm3 (142-424); Red Blood Count 3.77 M/mm3 (4.20-5.40); White Blood Count 7.7 K/mm3 (4.8-10.8)
--- NOTE | 2020-07-05 08:00 | CA_ITS ---
APPROVED REPORT EXAM: Comprehensive 2D, Doppler, and color-flow Echocardiogram Seo Manager: Shanon Lozano, RCS, RVS Ht: 5 ft 3 in Wt: 135lbs BSA: 1.64 HR: 67 bpm BP: 117/70 mmHg Indications: cm,PHTN, murmur, 2D Dimensions IVSd 1.74 cm LVEF (Visual) 71.10 % PWd 0.82 cm LA Volume 50.30 mL LVDd 3.40 cm LA Volume Index 30.70 mL/m2 (M/F) 16-34 LVDs 2.06 cm LVOT 1.35 cm (M/F) 1.5-2.5 M-Mode Dimensions LA Diam 3.55 cm (1.9-4.0) Ao Diam 2.67 cm (2.0-3.7) EPSs 0.06 cm TAPSE 2.25 (<1.7) LV Diastology E Decel Time 220.00 (160-240 msec) E/A Ratio 0.85 MED E' 6.10 (< 7 cm/sec) MED A' 8.60 cm/s E'/MED E' Ratio 17.89 (>14) LAT E' 7.70 (<10 cm/sec) LAT A' 7.60 cm/s E/LAT E' Ratio 14.17 (>14) Pulm Vein s 55.00 cm/sec Pulm Vein d 43.00 cm/sec Ar-A Duration 170.00 msec Aortic Valve LVOT Max 177.00 (70-110 cm/s) LVOT VTI 37.55 cm AoV Peak Armond. 166.00 (50-130 cm/s) AI PHT 377.00 ms AO Peak GR. 11.00 mmHg AO Mean GR. 5.70 (<5 mmHg) AO VTI 33.85 (18-25 cm) LUCIA (VTI) 1.59 (2.5-4.5 cm2) Mitral Valve MV E Max Armond. 109.00 (40-130 cm/s) MV A Velocity 129.00 (40-130 cm/s) E/A Ratio 0.85 MV Decel. Time 220.00 (160-240 ms) MV PHT 64.00 ms Pulmonary Valve PV Peak Velocity 63.00 (50-150 cm/s) NJ End VMAX 181.00 cm/s Tricuspid Valve TR P. Velocity 267.00 cm/s RAP Estimate 10.00 mmHg RVSP 38.40 mmHg Left Ventricle Left atrium is moderately enlarged, left ventricle is normal size, there is asymmetrical basal septal hypertrophy, visually estimated ejection fraction 55% with no regional wall motion abnormality. Right Ventricle Right atrium and right ventricle are normal size and contractility. Aortic Valve Aortic valve is thickened and calcified without aortic stenosis, there is mild aortic insufficiency. Mitral Valve Mitral valve leaflets are minimally thickened, there appears to be systolic anterior motion of the mitral valve leaflet, there is no mitral stenosis, there is mitral regurgitation present which is difficult to quantify, a transesophageal echocardiogram is recommended for further evaluation. Tricuspid Valve Tricuspid valve is grossly normal, there is trace tricuspid regurgitation, tricuspid regurgitation jet velocity is inadequate for calculation of the right ventricular systolic pressure. Pulmonic Valve Pulmonic valve is poorly visualized. Aortic root is normal size. Pericardium No significant pericardial effusion noted. Conclusion 1. Moderately enlarged left atrium, normal left ventricular size, basal septal asymmetrical hypertrophy, visually estimated ejection fraction 55% with no regional wall motion abnormality, there is systolic anterior motion of the mitral valve leaflets seen, however there is no intracavitary gradient documented in this study. There is mitral regurgitation present which is difficult to quantify, a transesophageal echocardiogram is recommended. 2. Mild aortic and trace tricuspid regurgitation. 3. No significant pericardial effusion noted. Electronically signed by : Santana Pineda, 07/05/2020 17:54:29
[2020-07-05 08:04] LABS: Anion Gap 10.3 mEq/L (5-15); Blood Urea Nitrogen 13 mg/dl (7-17); Calcium 9.1 mg/dl (8.4-10.2); Carbon Dioxide 28 mmol/L (22.0-30.0); Chloride 102 mmol/L (98-107); Creatinine Clearance Estimated 43 mL/min (50-200); Estimated Glomerular Filt Rate 81 ml/min (>60); GFR (African American) 98 ML/MIN (>60); Glucose 97 mg/dl (74-100); Magnesium 2.2 mg/dl (1.6-2.3); Potassium 4.3 mmoL/L (3.5-5.1); Sodium 136 mmol/L (136-145)
--- NOTE | 2020-07-05 08:33 | HMH.HP ---
*Admission Date: 07/04/20 *Chief complaint: Angina *History of present illness: 79yo female with a history of multiple cardiac stents and hypertension presents with chest pain that radiates to her back. Differential diagnosis includes but is not limited to ACS, aortic dissection, GERD, PE. Labs including CBC, CMP, BNP, troponins were obtained along with a chest x-ray and a CTA of the chest. I reviewed patient's labs and images. Patient's labs initiated a stable anemia, mildly elevated initial troponin. Patient's BNP was mildly elevated, however, her chest x-ray did not demonstrate signs of volume overload. Patient CTA of the chest did not demonstrate any signs of aortic injury or pulmonary emboli, however did demonstrate 3 lung masses in the right lower lobe that have been unchanged as well as a 10 mm nodule that is also unchanged. Upon my initial assessment, patient is tachycardic to 100, but upon my reassessment, patient is resting comfortably, is no longer in any pain, and is now having a heart rate in the mid 70s. Second troponin was increased to 0.16. As such, patient was admitted for further management. Above note per ER. Cardiology service here is very familiar with her. She was admitted for further evaluation and diagnostic cath [facility] History I have reviewed the patient's past medical history: Yes Medical History: Reports:: Cardiomyopathy, Congestive Heart Failure, Coronary Artery Disease, Gastroesophageal Reflux Disease(GERD), Hyperlipidemia, Hypertension, Myocardial Infarction Denies:: Cancer, Diabetes Mellitus Type 1, Diabetes Mellitus Type 2, MRSA *Have you ever received a pneumonia vaccine?: Yes *Have you received a flu vaccine this season?: Yes Other Medical History: Reports: Arthritis, Hormone Therapy (premarin), Hypothyroidism Other Surgeries: Yes: No Previous Surgery, Cardiac Catheterization, Colon Resection (24 inches removed at ), Coronary Stent, Hysterectomy-Total, Tubal Ligation, Other (bx r breast, bladder uptake, 3 disks removed from neck) Amputation: No Fractures: No - *Social History Smoking Status: Former smoker Alcohol Intake: never Alcohol Intake Frequency:: other Substance Use Type: denies use *Occupational Status:: retired Housing: house Household Members: spouse *Travel in the last 8 weeks: None Family Hx:: Hyperlipidemia, Hypertension Review of Systems - Review of Systems Review of systems:: pertinent systems reviewed and negative unless documented below Meds Home Medications Medication Instructions Recorded Confirmed Type docusate sodium 100 mg capsule 100 mg PO HS 04/30/17 07/05/20 History buspirone 10 mg tablet 10 mg PO DAILY 06/19/17 07/05/20 History levothyroxine 88 mcg capsule 88 mcg PO DAILY cap 06/19/17 07/05/20 History pantoprazole 40 mg tablet,delayed 40 mg PO DAILY 06/19/17 07/05/20 History release conjugated estrogens 0.625 mg 0.625 mg PO DAILY tab 07/17/17 07/05/20 History tablet linaclotide 290 mcg capsule 290 mcg PO DAILY cap 07/17/17 07/05/20 History venlafaxine 225 mg tablet,extended 225 mg PO DAILY tab 07/17/17 07/04/20 History release 24 hr Loratadine [Allergy Relief] 10 mg PO NEEDED PRN 12/20/17 07/05/20 History aspirin 81 mg tablet,delayed 81 mg PO DAILY 01/22/18 07/05/20 History release meclizine 12.5 mg tablet 12.5 mg PO NEEDED PRN 01/22/18 07/05/20 History trospium 20 mg tablet 20 mg PO DAILY tab 01/22/18 04/26/20 History atorvastatin 80 mg tablet 80 mg PO DAILY #90 tab 03/11/19 07/05/20 History oxybutynin chloride 15 mg 15 mg PO DAILY tab 08/29/19 07/05/20 History tablet,extended release 24 hr fluticasone fur. 100 mcg-umeclid 1 inh INHALATION DAILY each 01/01/20 07/05/20 History 62.5 mcg-vilant 25 mcg inhalat.powder furosemide 20 mg tablet 40 mg PO .as directed #180 tab 03/04/20 07/05/20 Rx Clopidogrel Bisulfate [Plavix 75mg 75 mg PO DAILY 04/07/20 07/05/20 History Tab] Isosorbide Mononitrate [Imdur 30mg 1 tab OD DAILY
--- NOTE | 2020-07-05 08:42 | HMH.CNCARD ---
History of Present Illness Consult date: 07/05/20 Requesting physician: William Garcia Consult reason: chest pain Chief complaint: Chest pain History of present illness: 79-year-old female admitted to [facility] with non-STEMI. Patient stated for the past several days she has been having some midsternal chest pain radiating to the back area. Patient states she had been trying to avoid coming to the ER due to her being sick. Patient stated the chest pain has eased up some. She describes the chest pain as a dull ache in the center of her chest radiating to the back. Patient denies shortness of breath with exertion. Denies palpitations. Patient does have slight swelling of the lower extremities. Patient does have swelling of her hands. Patient has history of arthritis. Patient is a non-smoker. Patient does have history of coronary artery disease and diastolic dysfunction. Last heart catheterization was in 2019 which revealed proximal patent LAD and first diagonal artery stents. That catheterization did show patient had moderate right iliac external artery stenosis. Medical management of PAD. Patient does have history of hypertension which is controlled. 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 Patient is followed by oncologist at [facility]. Echocardiogram performed in April 2020 revealed systolic anterior motion of the mitral valve which moderate mitral regurgitation was present. Patient noted to have elevated troponins ranging from 0.60 to 0.30. Patient is slightly hypertensive this a.m. Patient is on appropriate medication for her coronary artery disease. Patient does have history of hyperlipidemia in which is managed with statin. [facility] IMPRESSION (06/05) Patient's angina pectoris stems from the severely elevated LVEDP Widely patent proximal LAD and first diagonal artery stents Normal ejection fraction Moderate right external iliac artery stenosis PLAN 1. Patient requires diuresis and to decrease EDP which is etiology for patient's angina 2. Medical management for PAD unless patient symptoms become recalcitrant then stenting can be performed in order to improve inflow into the right leg 3. Aggressive risk factor modification 4. Maximize antianginal medications Echo: Conclusion (05/06) 1. Limited echo was performed to evaluate the dynamic obstruction in the left ventricle outflow tract, there is systolic anterior motion of the mitral valve leaflets seen. 2. Despite multiple attempts, the accurate assessment of left ventricular outflow dynamic obstruction is difficult to obtain from this study, there is moderate mitral regurgitation present. 3. No significant pericardial effusion noted. Discussed plan of care with Dr. Cantu and PCP. Discussed left heart catheterization today with patient. Discussed risks and benefits of having left heart catheterization with access of the right groin area. Patient verbalized understanding and agreeable to procedure. Echocardiogram obtained to assess LV function and valve status. Pending on the results of echocardiogram and left heart catheterization, changes in medication and treatment therapy may be recommended. Thank you for allowing cardiology to participate in the care of this patient. [facility] History I have reviewed the patient's past medical history: Yes Medical History: Reports:: Cardiomyopathy, Congestive Heart Failure, Coronary Artery Disease, Gastroesophageal Reflux Disease(GERD), Hyperlipidemia, Hypertension, Myocardial Infarction Denies:: Cancer, Diabetes Mellitus Type 1, Diabetes Mellitus Type 2, MRSA *Have you ever received a pneumonia vaccine?: Yes *Have you received a flu vaccine this season?: Yes Other Medical History: Reports: Arthritis, Hormone Therapy (premarin), Hypothyroidism Other Surgeries: Yes: No Previous Surgery, Cardiac Catheter
--- NOTE | 2020-07-05 10:37 | HMH.PHAINT ---
MEDICATION RECONCILIATION COMPLETED ON PATIENT USING EXTERNAL FILL HISTORY FROM PHARMACY AND LIST FROM CARDIOLOGY OFFICE. -PANCHO MAYSD
--- NOTE | 2020-07-05 15:00 | HMH.DCSUM ---
General - General Admission date:: 07/04/20 Discharge date: 07/05/20 HPI HPI: 79yo female with a history of multiple cardiac stents and hypertension presents with chest pain that radiates to her back. Differential diagnosis includes but is not limited to ACS, aortic dissection, GERD, PE. Labs including CBC, CMP, BNP, troponins were obtained along with a chest x-ray and a CTA of the chest. I reviewed patient's labs and images. Patient's labs initiated a stable anemia, mildly elevated initial troponin. Patient's BNP was mildly elevated, however, her chest x-ray did not demonstrate signs of volume overload. Patient CTA of the chest did not demonstrate any signs of aortic injury or pulmonary emboli, however did demonstrate 3 lung masses in the right lower lobe that have been unchanged as well as a 10 mm nodule that is also unchanged. Upon my initial assessment, patient is tachycardic to 100, but upon my reassessment, patient is resting comfortably, is no longer in any pain, and is now having a heart rate in the mid 70s. Second troponin was increased to 0.16. As such, patient was admitted for further management. Above note per ER. Cardiology service here is very familiar with her. She was admitted for further evaluation and diagnostic cath Hospital Course Hospital Course: admitted... taken to [facility] - w/u as below... 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 Medical management for coronary artery disease 2. Better control of hypertension 3. Liberalize diuretics in order to decrease LVEDP Did well post cath --- no changes on exam -- d/cd home to f/u with cards with increased meds as noted in DC plan Objective Vital signs: Temp Pulse Resp BP Pulse Ox 98.1 F 84 16 93/59 L 97 07/05/20 11:51 07/05/20 14:35 07/05/20 14:35 07/05/20 14:35 07/05/20 14:35 no acute distress - *Routine HEENT Exam Head: Present: normocephalic Eye: Present: EOMI, PERRL ENT: Present: mucous membranes moist - *Routine Neck Exam Present: supple - *Routine Respiratory Exam Present: CTA bilaterally - *Routine Cardiovascular Exam Present: RRR - *Routine Abdominal Exam Present: soft, normoactive bowel sounds. Absent: tenderness - *Routine Extremities Exam Absent: cyanosis, clubbing, edema - *Routine Skin Exam Present: warm. Absent: rash - Detailed Eye Exam Eyelids: Bilateral normal inspection Results Labs on day of discharge: Labs from last 24 hours 07/05/20 07/05/20 07/04/20 07:25 07:25 22:41 WBC 7.7 D RBC 3.77 L Hgb 11.5 L Hct 34.5 L MCV 91.5 MCH 30.4 MCHC 33.2 RDW 13.0 Plt Count 377 MPV 6.9 L Neut % (Auto) 59.0 Lymph % (Auto) 29.2 Bulloch % (Auto) 6.2 Eos % (Auto) 4.8 Baso % (Auto) 0.8 Neut # (Auto) 4.6 Lymph # (Auto) 2.3 Bulloch # (Auto) 0.5 Eos # (Auto) 0.4 Baso # (Auto) 0.1 Sodium 136 Potassium 4.3 Chloride 102 Carbon Dioxide 28 Anion Gap 10.3 BUN 13 Creatinine 0.70 Estimated Creat Clear 43 Estimated GFR 81 Est GFR ( Amer) 98 Glucose 97 D Calcium 9.1 Magnesium 2.2 D Troponin I 0.30 H NT-Pro-B Natriuret Pep 07/04/20 07/04/20 07/04/20 19:45 16:36 16:36 WBC 10.5 RBC 3.79 L Hgb 11.6 L Hct 34.0 L MCV 89.5 MCH 30.5 MCHC 34.1 RDW 12.8 Plt Count 392 MPV 6.7 L Neut % (Auto) 68.7 Lymph % (Auto) 24.3 Bulloch % (Auto) 4.4 Eos % (Auto) 2.1 Baso % (Auto) 0.6 Neut # (Auto) 7.2 Lymph # (Auto) 2.5 Bulloch # (Auto) 0.5 Eos # (Auto) 0.2 Baso # (Auto) 0.1 Sodium Potassium Chloride Carbon Dioxide Anion Gap BUN Creatinine Estimated Creat Clear Estimated GFR Est GFR (
== END 2020-07-05 18:40 | disposition home or self-care (01) | DRG 281 ==
LOC: ER 20:27 → 2ND 21:01
PROVIDERS: Emergency Medicine; Internal Medicine; Admitting Provider Internal Medicine Adolescent Medicine; Emergency Provider Emergency Medicine; PCP Family Medicine; Visit Provider Internal Medicine Adolescent Medicine
PROC: 4A023N7 Measurement of Cardiac Sampling and Pressure, Left Heart, Percutaneous Approach (ICD-10-PCS; principal; 2020-07-05 12:00)
DX: I21.4 Non-ST elevation (NSTEMI) myocardial infarction (principal); I42.9 Cardiomyopathy, unspecified; I25.118 Atherosclerotic heart disease of native coronary artery with other forms of angina pectoris; I11.0 Hypertensive heart disease with heart failure; I50.9 Heart failure, unspecified; I25.2 Old myocardial infarction; Z79.890 Hormone replacement therapy; I15.0 Renovascular hypertension; I70.1 Atherosclerosis of renal artery; Z88.8 Allergy status to other drugs, medicaments and biological substances; Z88.2 Allergy status to sulfonamides; Z79.02 Long term (current) use of antithrombotics/antiplatelets; Z79.82 Long term (current) use of aspirin; Z79.899 Other long term (current) drug therapy; E03.9 Hypothyroidism, unspecified; Z95.5 Presence of coronary angioplasty implant and graft
CPT/HCPCS: 36252; 36415; 71045; 71275; 80048; 83735; 83880; 84484; 85025; 93005; 93306; 93458; 96375; 99152; 99284; C1725; C1769; J1644; Q9967; U0003

== ENCOUNTER → 2020-07-27 10:52 | Outpatient (CLI) | payer MEDICARE, OTHER, SELFPAY | PROVIDERS: Visit Provider Internal Medicine Cardiovascular Disease | DX: Z20.822 Contact with and (suspected) exposure to COVID-19 (principal) | CPT/HCPCS: U0003 ==

== ENCOUNTER 2020-07-29 12:46 | Day surgery (SDC) | payer MEDICARE, OTHER, SELFPAY ==
--- NOTE | 2020-07-29 12:49 | CA_ITS ---
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 Type of Sedation : Conscious Sedation Sedation was administered by Erwin Tarango C.R.N.A. Transesophageal probe was inserted and advanced into esophagus without difficulty by Dr. Merly Alfonso. The CATALINA was performed without complications. Throughout the procedure, the blood pressure, pulse oximetry, cardiac rhythm, and rate were monitored. The patient tolerated the procedure without adverse effects. Recovery from conscious sedation was uneventful and vital signs were stable. Left Ventricle Left ventricle is normal size, there is mild concentric left ventricular hypertrophy, there is mild basal asymmetrical septal hypertrophy seen. Visually estimated ejection fraction 55% with no regional wall motion abnormality, there is no significant intracavitary gradient or dynamic obstruction seen. Right Ventricle Right ventricle is normal size and contractility. Atria Left atrium is mildly enlarged. Left atrial appendage free of thrombus there is good appendage flow by spectral Doppler. Right atrium is normal size. Intra-atrial septum is intact, there is no flow across the interatrial septum, agitated saline contrast study fails to identify intracardiac shunt. Aortic Valve Aortic valve is minimally thickened and calcified, there is no aortic stenosis, there is mild aortic insufficiency. Mitral Valve Mitral valve leaflets are minimally thickened, there is mild systolic anterior motion of the mitral valve leaflets seen, there is no intracavitary gradient seen, there is mild mitral regurgitation. Tricuspid Valve Tricuspid valve is grossly normal, there is mild tricuspid regurgitation. Pulmonic Valve Pulmonic valve is grossly normal. Great Vessels Aortic root is normal size. Ascending, arch and descending thoracic aorta there is no aneurysm or dissection. Pericardium No significant pericardial effusion noted. Conclusion 1. Mildly enlarged left atrium, normal left ventricular size, mild concentric left ventricular hypertrophy, there is mild asymmetrical septal hypertrophy of the basal septum seen, visually estimated ejection fraction 55% with no regional wall motion abnormality, there is mild systolic anterior motion of the mitral valve leaflets seen, there is no intracavitary gradient seen, there is mild mitral regurgitation. 2. Minimally thickened and calcified aortic valve with mild aortic insufficiency. 3. Agitated saline contrast study fails to identify intracardiac shunt. 4. No significant pericardial effusion noted. 5. Other ancillary findings as described above. Electronically signed by : Santana Pineda, 07/29/2020 15:38:39
[2020-07-29 12:53] VITALS: BMI 22.8
[2020-07-29 13:10] VITALS: BP 206/84; PULSE 66; RESP 16; O2SAT 100
[2020-07-29 13:35] VITALS: PULSE 61
[2020-07-29 14:12] VITALS: BP 128/66; PULSE 64; RESP 20; O2SAT 97
[2020-07-29 14:13] VITALS: BP 128/66; PULSE 66; RESP 20; O2SAT 97
[2020-07-29 14:14] LABS: Coronavirus 19 IgG Antibody Positive (Negative); Coronavirus 19 IgM Antibody Negative (Negative)
[2020-07-29 14:30] VITALS: BP 126/83; PULSE 66; RESP 20; O2SAT 97
== END 2020-07-29 14:49 | disposition home or self-care (01) ==
LOC: CATHLAB 12:48
PROVIDERS: PCP Family Medicine; Visit Provider Internal Medicine Cardiovascular Disease
DX: I34.0 Nonrheumatic mitral (valve) insufficiency (principal); R93.1 Abnormal findings on diagnostic imaging of heart and coronary circulation
CPT/HCPCS: 86328; 93312; 99152

== ENCOUNTER → 2020-08-24 10:07 | Outpatient (POV) | payer MEDICARE, OTHER, SELFPAY | PROVIDERS: Visit Provider Dermatology | DX: Z00.00 Encounter for general adult medical examination without abnormal findings (principal) ==